=== PATIENT | male | born 1950 | race Caucasian/White ===

== ENCOUNTER 2021-01-23 12:10 | Outpatient (REF) | payer MEDICARE, OTHER, SELFPAY ==
[2021-01-23 13:32] LABS: MANUAL DIFF FLAG NO
[2021-01-23 13:40] LABS: Basophils Percent Auto 0.7 % (0-2); Eosinophils Absolute Auto 0.1 X10*3/uL (0.0-0.4); Eosinophils Percent Auto 1.4 % (0-4); Hematocrit 49.4 % (42-52); Hemoglobin 16.9 g/dl (14.0-18.0); Imm Gran Abs Auto 0.03 X10*3/uL (0.00-0.03); Imm Gran Pct Auto 0.7 % (0.0-0.4); Lymphocytes Absolute Auto 0.9 X10*3/uL (1.2-4.9); Lymphocytes Percent Auto 22.1 % (20-40); Mean Corpuscular HGB Conc 34.2 g/dl (31.0-36.0); Mean Corpuscular Hemoglobin 35.4 pg (27.0-33.0); Mean Corpuscular Volume 103.6 fL (80-98); Mean Platelet Volume 9.2 fL (9.4-12.4); Monocytes Absolute Auto 0.4 X10*3/uL (0.1-1.2); Monocytes Percent Auto 8.7 % (2-11); Neutrophils Absolute Auto 2.8 X10*3/uL (2.0-8.3); Neutrophils Percent Auto 66.4 % (45-73); Platelet Count 204 X10*3/uL (160-400); Red Blood Count 4.77 X10*6/uL (4.60-5.80); Red Cell Distribution Width 13.2 % (11.0-16.0); White Blood Count 4.3 X10*3/uL (4.8-10.8)
[2021-01-23 14:01] LABS: Alanine Aminotransferase 28 U/L (0-40); Albumin Level 3.9 g/dL (3.5-5.0); Alkaline Phosphatase 66 U/L (39-117); Anion Gap 14 (12-20); Aspartate Amino Transferase 25 U/L (5-37); Bilirubin Total 2.3 mg/dL (0.0-1.0); Blood Urea Nitrogen 10 mg/dL (9-16); Calcium 9.6 mg/dL (8.4-10.2); Carbon Dioxide 25 mmol/L (22-29); Chloride 107 mmol/L (96-108); Cholesterol 192 mg/dL; Estimated Glomerular Filt Rate > 60; Glucose Fasting 139 mg/dL (60-99); HDL Cholesterol 73 mg/dL; LDL Cholesterol Calculated 94 mg/dl; Potassium 4.7 mmol/L (3.3-5.1); Sodium 141 mmol/L (135-145); Total Protein 6.7 g/dL (6.5-8.0); Triglycerides 126 mg/dL
[2021-01-23 14:25] LABS: Prostate Specific Antigen Scr 1.21 ng/mL (<0.05-4.0); Thyroid Stimulating Hormone 1.49 uIU/mL (0.32-4.0)
== END 2021-01-23 12:11 | disposition home or self-care (01) ==
LOC: HO.10HDL 12:10
PROVIDERS: Absent Provider Nurse Practitioner Family; PCP Internal Medicine; Visit Provider Internal Medicine
DX: Z12.5 Encounter for screening for malignant neoplasm of prostate (principal); E78.00 Pure hypercholesterolemia, unspecified; I10 Essential (primary) hypertension; R63.5 Abnormal weight gain
CPT/HCPCS: 36415; 80053; 80061; 84153; 84443; 85025

== ENCOUNTER 2024-05-26 07:20 | Day surgery (SDC) | payer MEDICARE, OTHER, SELFPAY ==
[2024-05-24 13:40] VITALS: BMI 28.8
--- NOTE | 2024-05-25 09:15 | HO.ANESPROP2 ---
Documented by User: Francine Sandoval NP 05/25/24 09:16 HPI - Anesthesia Eval Consult details Narrative: 73yo M for Colonoscopy [facility] Past Medical History Medical History (Updated 05/24/24 @ 13:43 by Mendy Scott RN) No pertinent past medical history Surgical History Surgical History (Updated 05/24/24 @ 13:41 by Mendy Scott RN) Hx of cataract extraction H/O colonoscopy Social History Social History (Updated 05/24/24 @ 13:41 by Mendy Scott RN) Patient Tobacco Use Status: Never used Tobacco Use of substances other than those prescribed or required for medical reasons: No Are you DNR?: No Advance Directives: No Advance Directives Information Provided: Yes Meds Allergies Allergy/AdvReac Type Severity Reaction Status Date / Time No Known Allergies Allergy Verified 05/24/24 13:41 Home Medications ?Medication ?Instructions ?Recorded ?Confirmed ?Last Taken ?Type cyanocobalamin (vitamin B-12) 1,000 mcg PO DAILY 05/24/24 05/26/24 Unknown History 1,000 mcg tablet (Vitamin B-12) multivitamin 1 tab PO DAILY 05/24/24 05/26/24 Unknown History Exam Height,Weight and Vital Signs: Height 6 ft 2 in Weight 101.605 kg Assessment and Plan Assessment Anesthesia Assessment: Chart Reviewed Documented by User: Ronald Fregoso MD 05/26/24 09:32 [facility] Past Medical History Medical History (Updated 05/24/24 @ 13:43 by Mendy Scott RN) No pertinent past medical history Family History Family history of problems with anesthesia: No Surgical History Surgical History (Updated 05/24/24 @ 13:41 by Mendy Scott RN) Hx of cataract extraction H/O colonoscopy History of Problems with Anesthesia: No Social History Social History (Updated 05/24/24 @ 13:41 by Mendy cSott RN) Patient Tobacco Use Status: Never used Tobacco Use of substances other than those prescribed or required for medical reasons: No Are you DNR?: No Advance Directives: No Advance Directives Information Provided: Yes Meds Allergies Allergy/AdvReac Type Severity Reaction Status Date / Time No Known Allergies Allergy Verified 05/24/24 13:41 Home Medications ?Medication ?Instructions ?Recorded ?Confirmed ?Last Taken ?Type cyanocobalamin (vitamin B-12) 1,000 mcg PO DAILY 05/24/24 05/26/24 Unknown History 1,000 mcg tablet (Vitamin B-12) multivitamin 1 tab PO DAILY 05/24/24 05/26/24 Unknown History Exam Airway Mallampati Class: III TM Dist: >3cm Neck ROM: Full Assessment and Plan Assessment Anesthesia Assessment: Anesthesia Plan Discussed Final Anesthetic Review Family History of Problems with Anesthesia: No History of Problems with Anesthesia: No NPO: Yes ASA Class: II Final Preanesthetic Review: No Changes in Pt Med Stat, Meds/Allgs Chart Reviewed, Consent Obtained/Reviewed and Anes Risks/Benef Reviewed Patient Risk: Intermediate Procedure Risk: Low Anesthetic Plan Anesthetic Plan: TIVA Disposition: Standard PACU
[2024-05-26 07:56] VITALS: BMI 28.9
[2024-05-26 08:06] VITALS: BP 152/97; PULSE 99; RESP 16; TEMP 36.6; O2SAT 97
[2024-05-26] MEDS: Lactated Ringers 1,000 ML 100 ML IVCONT (08:18)
--- NOTE | 2024-05-26 10:08 | PM.OP ---
Brief Operative Note Date of Service: 05/26/24 Pre-op diagnosis: Screening Post-op diagnosis: other (Colon polyps) Procedure: Colonoscopy to the cecum with cold snare polypectomy of cecal polyp, and hot snare polypectomy x 2 Surgeon: Chai Owen MD Anesthesia: MAC Was an Jewelry Inspector used for this Procedure?: No Estimated blood loss (mL): 2.0 Pathology: other (A. Cecal polyp B. Ascending colon polyp C. Polyp at 50cm) Condition: stable Disposition: PACU
[2024-05-26 10:09] VITALS: BP 145/85; PULSE 80; RESP 17; TEMP 36.3; O2SAT 96
[2024-05-26 10:24] VITALS: BP 155/99; PULSE 95; RESP 16; TEMP 36.3; O2SAT 96
--- NOTE | 2024-05-26 11:02 | OP_ITS ---
DATE OF SERVICE: 05/26/2024 SURGEON: Chai Owen MD INDICATIONS: The patient presents for evaluation of personal history of colon polyps and colorectal cancer screening. Full consent was obtained from him for this, including risks of bleeding and perforation. PREOPERATIVE DIAGNOSIS: POSTOPERATIVE DIAGNOSIS: PROCEDURE PERFORMED: ESTIMATED BLOOD LOSS: COMPLICATIONS: ANESTHESIA: Monitored anesthesia care. ASSISTANTS: SPECIMENS: PREOPERATIVE DIAGNOSES: Colorectal cancer screening and personal history of colon polyps. POSTOPERATIVE DIAGNOSES: Colorectal cancer screening, personal history of colon polyps, colon polyps, diverticulosis, and internal hemorrhoids. PROCEDURES PERFORMED: Colonoscopy to the cecum with cold snare polypectomy x 1 of cecal polyp, and hot snare polypectomy x 2 in the ascending colon and at 50 cm. DESCRIPTION OF PROCEDURE: The patient was placed in the left lateral decubitus position. The digital rectal exam revealed no abnormalities. The Olympus video pediatric colonoscope was entered into the rectum and advanced to the cecum. Advancement to the cecum was difficult and required abdominal wall pressure. Once in the cecum, I did identify cecal pouch with appendiceal orifice and a normal-appearing ileocecal valve. There was transillumination of light deep in the right lower quadrant. The entire cecum was well visualized. The cecal mucosa had some friability, but with irrigation, there did not appear to be any underlying colitis. In the cecum was an approximately 5 or 6 mm polyp, which was removed by cold snare polypectomy and recovered by suction. The polypectomy site appeared clean, without any sign of residual polyp nor significant bleeding. The scope was then slowly withdrawn assessing all mucosal surfaces carefully. Preparation was excellent. The ascending colon mucosa also had some areas of friability, which again when irrigated did not reveal any underlying colitis. In the ascending colon was an approximately 1 cm polyp on a short stalk, which was removed by hot snare polypectomy and then recovered with the retrieval net bringing it out of the patient. The colonoscope was advanced back to the polypectomy site in the ascending colon, which appeared clean, without any sign of residual polyp nor bleeding. At 50 cm, was an approximately 1.5 cm polyp on a short stalk, which was removed by hot snare polypectomy and recovered with the retrieval net bringing it out of the patient. The scope was advanced back to the polypectomy site, which appeared clean, without any sign of residual polyp nor bleeding. Of note, there were several other less than 5 mm polyps in the colon, which were not biopsied nor removed today due to the length of the procedure. I did not visualize any other polyps, colitis, nor angiodysplasia. There was a mild amount of sigmoid diverticulosis. In the rectum, scope was retroflexed visualizing some internal hemorrhoids, but no other pathology. The rectal mucosa appeared normal. The scope was straightened and withdrawn from the patient. He tolerated the procedure well and was returned to recovery area in stable condition. IMPRESSION: 1. Colon polyps. 2. Diverticulosis. 3. Internal hemorrhoids. PLAN: The results of the pathology will be checked. I would recommend a repeat colonoscopy in 1 to 2 years. He was advised not to use any aspirin and NSAIDs for least 1 week. This has been discussed with his significant other. MD JOSE Adam/JORGE / [id number] MTDD
== END 2024-05-26 10:43 | disposition home or self-care (01) ==
PROVIDERS: PCP Internal Medicine; Visit Provider Internal Medicine
PROC: 0DJD8ZZ Inspection of Lower Intestinal Tract, Via Natural or Artificial Opening Endoscopic (ICD-10-PCS; CPT 45378; principal; 2024-05-26 08:40)
DX: Z12.11 Encounter for screening for malignant neoplasm of colon (principal); Z86.0101 Personal history of adenomatous and serrated colon polyps; D12.0 Benign neoplasm of cecum; D12.2 Benign neoplasm of ascending colon; D12.5 Benign neoplasm of sigmoid colon; K57.30 Diverticulosis of large intestine without perforation or abscess without bleeding; K64.8 Other hemorrhoids; Z79.899 Other long term (current) drug therapy
CPT/HCPCS: 45385; 88305; J2003; J2704

== ENCOUNTER 2024-12-25 13:28 | Outpatient (AMB) | payer MEDICARE, OTHER, SELFPAY ==
[2024-12-25 13:30] VITALS: BP 140/84; PULSE 136; TEMP 36.4; O2SAT 96; BMI 28.5
--- NOTE | 2024-12-25 13:30 | A.OFFPC_ITS ---
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 Accompanied by: Self / Same As Patient Allergies No Known Allergies Allergy (Verified 12/25/24 13:31) Tobacco use date assessed: 12/25/24 Fall risk assessment: 1 Fall in past year Last assessed Fall Risk: 12/25/24 Dental Screening Dental Screen Date: 12/25/24 Did you have a dental visit in the last 12 months?: Yes Did you have a dental problem in the last 6 months where you did not have access to dental care?: No [facility] Medical History (Updated 12/25/24 @ 13:59 by Paul Cruz MD) Hypercholesteremia No pertinent past medical history Surgical History Hx of cataract extraction H/O colonoscopy (~05/26/24) Family History (Updated 12/25/24 @ 13:41 by Shannan Shea MA) Mother No problems noted. Father No problems noted. Social History Housing: House Patient Tobacco Use Status: Never used Tobacco e-Cigarette/Vaping Use: Never Used service: Yes Current occupational status: retired Cognitive needs: No Hearing needs: No Vision needs: No Questionnaire PHQ-9 Over the last 2 weeks, how often have you been bothered by any of the following problems? 1. Little interest or pleasure in doing things: not at all 2. Feeling down, depressed, or hopeless: not at all 3. Trouble falling or staying asleep, or sleeping too much: not at all 4. Feeling tired or having little energy: not at all 5. Poor appetite or overeating: not at all 6. Feeling bad about yourself - or that you are a failure or have let yourself or your family down: not at all 7. Trouble concentrating on things, such as reading the newspaper or watching television: not at all 8. Moving or speaking so slowly that other people could have noticed. Or the opposite - being so fidgety or restless that you have been moving around a lot more than usual: not at all 9. Thoughts that you would be better off or of hurting yourself in some way: not at all Total score: 0 Source: Developed by Drs. Chai Burnham, Zeinab Aponte, Bashir Montejo and colleagues, with an educational shade from [employer]. Thrive Questionnaire Date Thrive assessed: 12/25/24 I am a: Patient Within the past 12 months, did the food you bought not last and you didn't have the money to get more?: Never true Within the past 12 months, did you worry whether your food would run out before you got money to buy more?: Never true Do you have trouble paying for medicines?: No Do you have trouble getting transportation to medical appointments?: No Do you have trouble paying your heating and electricity bill?: No Do you have trouble taking care of your child, family member or friend?: No Do you have trouble with day-to-day activities such as bathing, preparing meals, shopping, managing finances, etc.?: No Are you currently unemployed and looking for a job?: No Are you interested in more education?: No THRIVE Score: 0 AUDIT C Alcohol Use Questionnaire (AUDIT-C) 1. How often do you have a drink containing alcohol?: Monthly or less 2. How many drinks containing alcohol do you have on a typical day when you are drinking?: 1 or 2 3. How often do you have six or more drinks on one occasion?: Less than monthly Total Score: 2 ALEJANDRINA-7 AMB Questionnaire ALEJANDRINA-7 Date ALEJANDRINA - 7 assessed: 12/25/24 Feeling nervous, anxious, or on edge: 0 = Not at all Not being able to stop or control worryin = Not at all Worrying too much about different things: 0 = Not at all Trouble relaxin = Not at all Being so restless that it is hard to sit still: 0 = Not at all Becoming easily annoyed or irritable: 0 = Not at all Feeling afraid as if something awful might happen: 0 = Not at all Total ALEJANDRINA-7 score (0-4 normal; 5-9 mild; 10-14 moderate; 15-21 severe): 0 Source: Developed by Drs. Chai Burnham, Zeinab Aponte, Bashir Montejo and colleagues, with an educational shade from [employer]. Physical exam (Primary Care) Vital Signs: Last Vital Signs Temp 97.5 F 12/25/24 13:30 Pulse 136 H 12/25/24 13:30 BP 140/84 H 12/25/24 13:30 Pulse Ox 96 12/25/24 13:30 Oxygen Delivery Method Room Air 12/25/24 13:30 BMI result Body Mass Index 28.5 Tobacco/Smoking Status: Tobacco use Status Tobacco use date assessed 12/25/24 12/25/24 13:32 Patient Tobacco Use Status Never used Tobacco 12/25/24 13:32 e-Cigarette/Vaping Use Never Used 12/25/24 13:41 PHQ-9: PHQ-9 Score PHQ-9: Total score 0 12/25/24 13:41 Thrive Assessment: Date of Thrive Assessment Date Thrive assessed 12/25/24 12/25/24 13:32 Coding Level of Care Code New Pt Level 4 (62097) Complex EM visit Add On G2211 Diagnoses Hypercholesteremia E78.00 Assessment & Plan Assessment & Plan (1) Hypercholesteremia: Code(s): E78.00 - Pure hypercholesterolemia, unspecified Category: Medical Plan: History of Present Illness - The patient is a 74-year-old male presenting with diarrhea: - Reports diarrhea onset following an episode of illness beginning July 14, with symptoms persisting until around mid-September, characterized by urgency, bloating, and cramping. - Denies blood in stools; colonoscopy reports from the prior year confirm removal of benign polyps. - Experiences tremors and occasional dizziness, leading to rare falls but generally maintains activities of daily living. - Reports past instance of severe coughing with colored sputum in November; symptoms have since diminished significantly. Social History - [place] [employer] with prior medical experience. - Continues to drive and perform activities of daily living independently. - Receives most of his medical care and prescriptions through the [facility]. - Has not visited the clinic frequently, primarily seeks care through the [facility] in [place]. Review of Systems - Gastrointestinal: Reports diarrhea and bloating; denies blood in stool. - Neurological: Reports dizziness, hand tremors, wobbliness. - Respiratory: Reports past cough with colored sputum; active wheezing not currently mentioned. Physical Exam General: Cooperative and healthy appearing Nutritional Appearance: Well nourished Orientation/consciousness: Patient oriented x3 Limitations: No limitations Head: Normal to inspection General: Appearance normal, both eyes and all related structures Neck: Normal visual inspection Chest: Normal palpation of entire chest wall Respiratory: Patient reports a history of coughing up green and yellow mucus, especially in the mornings, but the volume has decreased over time. ormal respiratory effort Neurology: Patient oriented x3. Reports feeling wobbly, lightheaded, and dizzy at times, with occasional hand shaking. No issues with driving or daily activities, but handwriting worsens when feeling shaky. Basic testing for Parkinson's was negative. Symptoms are likely age-related. Gait: Normal Results Plan 1. Diarrhea - Initiate evaluation with blood tests focused on inflammatory markers. 2. Tremor - Observation from physical testing suggests no signs of Parkinson's disease. 3. Respiratory Concerns - Pursue a chest X-ray to assess residual impacts from past respiratory symptoms. Discussion Notes During the consultation, we discussed the patient's gastrointestinal concerns and the potential need for evaluating inflammatory markers for indications of Crohn's disease. I also performed neurological assessments that ruled out Parkinson's disease. We decided to follow up with blood work and a chest X-ray to investigate both current and historical symptoms further. We discussed ac cessing the nearby clinic for these tests. The patient expressed understanding and agreement with the proposed plan of care. We also discussed the general maintenance and continuation of care through the [facility] for other medical needs, with considerations for seeking care as needed. Patient Instructions - Visit a medical clinic for blood work and a chest X-ray as advised. - Fast before blood work to ensure accurate results. - Report any new symptoms or changes in current symptoms promptly. - Continue regular follow-up visits with the [facility] for ongoing health management. - Seek care immediately if experiencing worsening dizziness or new balance issues. Orders: Orders XR chest 2V Today E78.00 - Pure hypercholesterolemia, unspecified, R05.9 - Cough, unspecified Basic Metabolic Panel Today E78.00 - Pure hypercholesterolemia, unspecified Lipid Panel Today E78.00 - Pure hypercholesterolemia, unspecified Liver Panel Today E78.00 - Pure hypercholesterolemia, unspecified UA and rflx microscopic Today E78.00 - Pure hypercholesterolemia, unspecified BinaxNOW Covid-19 Ag Today E78.00 - Pure hypercholesterolemia, unspecified, J06.9 - Acute upper respiratory infection, unspecified Thyroid Stimulating Hormone Today E78.00 - Pure hypercholesterolemia, unspecified Erythrocyte Sedimentation Rate Today E78.00 - Pure hypercholesterolemia, unspecified
--- OUTSIDE RECORDS SUMMARY | 2024-12-25 15:11 | XMS_ITS | Encounter Summary ---
Author Name [facility] [place] [facility] [place] [facility] [place] [facility] [place] Address [address] [place] [address] Care Team Providers Care Warp Knitter Name Role Phone VIVIAN BARBA Primary Care Provider Unavail able Insurance Providers: All historical and current Section Date Range: From patient's date of to the date document was created. This section includes the names of all active insurance providers for the patient. Insurance Provider Type of Coverage Plan Name Start of Policy Coverage End of Policy Coverage Group Number Member ID Insurance Provider's Telephone Number Policy Diamond's Name Patient's Relationship to Policy Diamond MEDICARE (WNR) MEDICARE (M) PART A November 16, 2017 PART A [id number] ANTONIA COHN PATIENT MEDICARE (WNR) MEDICARE (M) PART B November 16, 2017 PART B [id number] [phone] ANTONIA COHN PATIENT MEDICARE (WNR) MEDICARE (M) PART A November 16, 2017 PART A [id number] ANTONIA COHN PATIENT MEDICARE (WNR) MEDICARE (M) PART B November 16, 2017 PART B [id number] ANTONIA COHN PATIENT FOR LIFE TFL* May 04, 2018 [id number] [phone] ANTONIA COHN PATIENT FOR LIFE [facility] [place] TFL November 16, 2017 FOR LIFE [id number] ANTONIA COHN PATIENT Selected Encounter This section includes the information on record at [place] for the Encounter. Date/Time Encounter Type Encounter Description Reason Provider Source Jul 31, 2024 03:30 PM OFFICE O/P EST HI 40 MIN PRIMARY CARE/MEDICINE ICD-10-CM F10.10 Alcohol abuse, uncomplicated LEV GAMEZ IHChristina Encounter Template Text not used by [place] Assessments - Encounter Diagnoses This section includes the primary and secondary diagnoses documented for the Encounter. Date/Time Primary/Secondary Diagnosis Diagnosis Name Provider Source Sep 04, 2024 12:51 PM PRIMARY Alcohol abuse, uncomplicated KYRA GAMEZ Sep 04, 2024 12:51 PM SECONDARY Abnormal levels of other serum enzymes KYRA GAMEZ Sep 04, 2024 12:51 PM SECONDARY Acute suppr otitis media w/o spon rupt ear drum, right ear KYRA GAMEZ Sep 04, 2024 12:51 PM SECONDARY Elevated blood-pressure reading, w/o diagnosis of htn KYRA GAMEZ Sep 04, 2024 12:51 PM SECONDARY Other idiopathic peripheral autonomic neuropathy KYRA GAMEZ Sep 04, 2024 12:51 PM SECONDARY Other insomnia KYRA GAMEZ Sep 04, 2024 12:51 PM SECONDARY Polycythemia vera KYRA GAMEZ Sep 04, 2024 12:51 PM SECONDARY Vitamin D deficiency, unspecified KYRA GAMEZ Plan of Treatment: Future Appointments (+ 6 months) and Future Tests (+/- 45 days) The Plan of Treatment section includes future care activities for the patient from all [place] treatmentfacilities. This section includes future appointments and future orders which are active, pending or scheduled. Future Appointments This section includes appointments that were scheduled to occur 6 months from the date of the Encounter, up to a maximum of 20 appointments. The data comes from all [place] treatment facilities. Appointment Date/Time Appointment Type Appointme nt Facility Name Sep 28, 2024 11:30 AM AMBULATORY - MEDICINE [facility] Oct 16, 2024 02:45 PM [facility] Oct 19, 2024 03:30 PM [facility] MEDICINE [facility] Nov 03, 2024 01:00 PM AMBULATORY - NONE [place] [facility] November 24, 2024 11:00 AM AMBULATORY - MEDICINE [facility] November 28, 2024 12:30 PM AMBULATORY - MEDICINE [facility] Dec 26, 2024 03:30 PM AMBULATORY - MEDICINE [facility] Lab Results: +/- 30 days of the encounter This section includes the Chemistry and Hematology Lab Results on record with [place] for the patient. Radiology Reports and Pathology Reports are provided separately, in subsequent sections. Lab Results This section contains the Chemistry/Hematology Results that were resulted 30 days before or 30 daysafter the date of the Encounter. Date/Time Source Result Type Result - Unit Interpretation Reference Range Specimen Type Comment Jul 28, 2024 09:45 AM [facility] HEPATITIS B SURFACE ANTIBODY (HBsAb)-WH SERUM Specimen Type: SERUM No comment entered. Ordering Provider: KYRA GAMEZ Report Released Date/Time: Jun 24, 2024 08:06 PM Reporting Lab: [address] [address] Performing Lab: [address] [address] HBsAb Non Reactive Non Reactive Jul 28, 2024 09:45 AM [facility] HEPATITIS C ANTIBODY (HCV)-ARC SERUM Specimen Type: SERUM Comment: Hep C Ab: No HCV antibody detected. If recent infection is suspected or other evidence suggests HCV infection, consider HCV nucleic acid testing Ordering Provider: KYRA GAMEZ Report Released Date/Time: Jun 24, 2024 08:06 PM Reporting Lab: [address] [address] Performing Lab: [address] [address] HEPATITIS C ANTIBODY NON-REACTIVE NON-RE ACTIVE Jul 28, 2024 09:45 AM [facility] HIV 1&2 Ag/Ab SCREEN SERUM Specimen T ype: SERUM No comment entered. Ordering Provider: KYRA GAMEZ Report Released Date/Time: Jun 24, 2024 08:06 PM Reporting Lab: [facility] [address] [facility] [address] Performing Lab: [address] [address] HIV 1&2 Ag/Ab SCREEN NON-REACTIVE Nonrea ctive Jul 28, 2024 09:45 AM [facility] BASIC METABOLIC PANEL (fasting) SERUM Specimen Type: SERUM No comment entered. Ordering Provider: KYRA GAMEZ Report Released Date/Time: Jun 24, 2024 08:06 PM Reporting Lab: [address] [address] Performing Lab: [address] [address] UREA NITROGEN 11 mg/dL 7-25 GLUCOSE 105 mg/dL H 65-100 SODIUM 139 mmol/L 135-145 POTASSIUM 3.9 mmol/L 3.5-5.0 CHLORIDE 104 mmol/L 100-110 CO2 27 meq/L 20-30 CREATININE, Serum 0.81 mg/dL 0.50-1.40 eGFR(CKD-EPI 2020) >90 mL/min >60 Jul 28, 2024 09:45 AM [facility] LIVER FUNCTION SERUM Specimen Type: SERUM No comment entered. Ordering Provider: KYRA GAMEZ Report Released Date/Time: Jun 24, 2024 08:06 PM Reporting Lab: [address] [address] Performing Lab: [address] [address] PROTEIN,TOTAL 7.4 g/dL 6.0-8.3 ALBUMIN 3.6 g/dL 3.5-5.0 ALKALINE PHOSPHATASE 66 U/L 40-150 AST 37 U/L H 5-34 ALT 45 U/L BILIRUBIN, TOTAL 3.8 mg/dL H 0.2-1.2 BILIRUBIN, DIRECT 0.7 mg/dL H 0-0.5 Jul 28, 2024 09:45 AM [facility] LIPID PANEL FASTING SERUM Specimen Ty pe: SERUM No comment entered. Ordering Provider: KYRA GAMEZ Report Released Date/Time: Jun 24, 2024 08:06 PM Reporting Lab: [place] [address] [address] [facility]: [facility] [address] [address] CHOLESTEROL 182 mg/dL TRIGLYCERIDE 111 mg/dL 0-150 LDL calculated 82 mg/dL 0-129 CHOL/HDL 2.3 HDL CHOLESTEROL 78 mg/dL H 40-60 Jul 28, 2024 09:45 AM [facility] VITAMIN D (25-OH) SERUM Specimen Type : SERUM No comment entered. Ordering Provider: KYRA GAMEZ Report Released Date/Time: Jun 24, 2024 08:06 PM Reporting Lab: [address] [address] Performing Lab: [address] [address] VITAMIN D (25-OH) <13 ng/mL L 20-50 Jul 28, 2024 09:45 AM [facility] VITAMIN B12 SERUM Specimen Type: SERUM No comment entered. Ordering Provider: KYRA GAMEZ Report Released Date/Time: Jun 24, 2024 08:06 PM Reporting Lab: [address] [address] Performing Lab: [address] [address] VITAMIN B12 221 pg/mL 200-900 Jul 28, 2024 09:45 AM [facility] CBC BLOOD Sp ecimen Type: BLOOD No comment entered. Ordering Provider: KYRA GAMEZ Report Released Date/Time: Jun 24, 2024 08:06 PM Reporting Lab: [address] [address] Performing Lab: [address] [address] WBC 6.21 10*3/uL 4.50-11.00 RBC 4.52 10*6/uL 4.23-5.66 HGB 16.0 g/dL 12.8-17 HCT 45.6 39.2-50.4 MCV 100.9 fL H 82-99 MCHC 35.1 g/dL 30.8-35.1 PLT 166 10*3/uL 140-360 RDW-CV 12.1 12.0-16.0 MCH 35.4 pg H 26.2-32.6 Jul 28, 2024 09:45 AM [facility] IRON & TIBC PANEL SERUM Specimen Type : SERUM No comment entered. Ordering Provider: KYRA GAMEZ Report Released Date/Time: Jun 24, 2024 08:06 PM Reporting Lab: [address] [address] Performing Lab: [address] [address] TIBC 228 ug/dL 204-475 IRON 216 ug/dL H 40-160 Transferrin Saturation 94.6 H 20.0-50.0 Transferrin (TRF) 173 mg/dL L 200-360 Jul 28, 2024 09:45 AM [facility] HEMOGLOBIN A1C PANEL BLOOD Specimen T ype: BLOOD Comment: Values obtained from A1C measurements can vary. For atypical A1C assays, a reported value of 7.0 could actually be between 6.72 and 7.28 if measured by a reference method. A reported value of 9.0 could actually be between 8.73 and 9.27. Ref: http://www.ngsp.org/CAPdata.asp Ordering Provider: KYRA GAMEZ Report Released Date/Time: Jun 24, 2024 08:06 PM Reporting Lab: [address] [address] Performing Lab: [address] [address] HEMOGLOBIN A1C 4.9 4.0-5.6 Jul 28, 2024 09:45 AM [facility] TSH SERUM Sp ecimen Type: SERUM No comment entered. Ordering Provider: KYRA GAMEZ Report Released Date/Time: Jun 24, 2024 08:06 PM Reporting Lab: [address] [address] Performing Lab: [address] [address] TSH 3.01 u[IU]/mL 0.35-5.00 Jul 28, 2024 09:45 AM [facility] FERRITIN SERUM Sp ecimen Type: SERUM No comment entered. Ordering Provider: KYRA GAMEZ Report Released Date/Time: Jun 24, 2024 08:06 PM Reporting Lab: [facility] [address] [facility] [address] Performing Lab: [facility] [address] [facility] [address] FERRITIN 658 ng/mL H 20-300 Vital Signs: All taken on the encounter date This section contains inpatient and outpatient Vital Signs collected on the date of the Encounter. Date/Time Temperature Pulse Blood Pressure Respiratory Rate SP02 Pain Height Weight Body Mass Index Source Jul 31, 2024 03:33 PM 100 136/91 96 224 [address] [facility] Social History: Smoking Status (Most current) and Tobacco Use (All prior to encounter date) This section includes the most current, and the historical, smoking and tobacco- related health factors from the [place] facility where the Encounter took place. Current Smoking Status This section includes the most current smoking, or tobacco-related health factor, from the [place] facility where the Encounter took place. Date/Time Current Smoking Status Comment Facil ity May 26, 2023 11:00 AM [place]-TOBACCO NEVER USED [facility] Advance Directives: All historical and current Section Date Range: From patient's date of to the date document was created. This section includes ALL of a patient's completed or amended [place] Advance and Rescinded Directives. The entries below indicate that a directive exists for the patient, but an actual copy is not included with this document. The data comes from all [place] facilities. Date Advance Directives Provider Source Oct 16, 2024 ADVANCE DIRECTIVE IZABELLA JOSEPH Jun 04, 2024 ADVANCE DIRECTIVE MARIE PHELAN [place] [facility] Encounter Notes: All associated encounter notes This section contains the clinical notes associated to the Encounter. Date/Time Encounter Note(s) Provider Source Jul 31, 2024 03:34 PM PREVENTIVE MEDICIN E NURSING NOTE: LOCAL TITLE: CLINICAL REMINDERS/NURSING STANDARD TITLE: PREVENTIVE MEDICINE NURSING NOTE DATE OF NOTE: JUL 31, 2024@15:34 ENTRY DATE: JUL 31, 2024@15:34:12 AUTHOR: LUDMILA FALL EXP COSIGNER: URGENCY: STATUS: COMPLETED CLINICAL REMINDERS/NURSING Has ADDENDA Homelessness/Food Insecurity Screen: In the past 2 months, have you been living in stable housing that you own, rent, or stay in as part of a household? Yes - Living in stable housing. Are you worried or concerned that in the next 2 months you may NOT have stable housing that you own, rent, or stay in as part of a household? No - Not worried about housing near future The reports the following: Within the past 12 months, you worried whether your food would run out before you got money to buy more. Never true Within the past 12 months, the food you bought just didn't last and you didn't have money to get more. Never true Depression Screening: Perform PHQ-2 A PHQ-2 screen was performed. The score was 2 which is a negative screen for depression. Over the past two weeks, how often have you been bothered by the following problems? 1. Little interest or pleasure in doing things Several days 2. Feeling down, depressed, or hopeless Several days Pneumococcal Conjugate Vaccine (PCV15/PCV20): Refuses PCV vaccine Immunization: PNEUMOCOCCAL CONJUGATE, UNSPECIFIED FORMULATION Refusal Reason: PATIENT DECISION Patient refuses all immunization(s) in the PneumoPCV group Date Documented: 07/31/24 15:34 Influenza Immunization: The patient has received the seasonal influenza vaccine for the current season at another location. Documented: INFLUENZA, UNSPECIFIED FORMULATION Historical Date Administered: Apr 2024 Exact date unknown Outside Location: Outside Healthcare Provider Information Source: FROM PATIENT'S RECALL Alcohol Use Screen (AUDIT-C): Alcohol Screen: SCREEN FOR ALCOHOL (AUDIT-C) An alcohol screening test (AUDIT-C) was positive (score=9). 1. How often did you have a drink containing alcohol in the past year? Consider a drink to be a 12 ounce can or bottle of regular beer, 8 ounces of malt liquor, a 5 ounce glass of table wine, or a 1.5 ounce shot of liquor (like scotch, gin, or vodka). Four or more times a week 2. How many drinks containing alcohol did you have on a typical day when you were drinking in the past year? Three or four drinks 3. How often did you have six or more drinks on one occasion in the past year? Daily or almost daily COVID-19 Immunization: PER PHARMACY : NO COVID VACCINE AVAILABLE AT THIS TIIME Sexual Orientation: The patient thinks of their sexual orientation as: Straight or Heterosexual Eye Care At-Risk Screen : Patient identified to be at risk for the following eye condition(s): GLAUCOMA: Glaucoma Risk Factors Information: Problem Diagnosis: 01/03/2024 H40.1190 (ICD-10-CM) Primary open-angle glaucoma, unspecified eye, stage unspecified Date Entered: 05/26/2023; Date Last Modified: 01/03/2024 Status: ACTIVE; Priority: UNDEFINED Prov. Narr. - POAG - primary open-angle glaucoma Action: Patient has a future eye care appointment scheduled within the next 90 days. Date of Appointment: [facility] /quan FALL LPN Licensed Practical Nurse Signed: 07/31/2024 15:37 08/02/2024 ADDENDUM STATUS: COMPLETED Follow Up Colonoscopy: Colonoscopy is due based on information available to this reminder. Prior/outside Colonoscopy results: Date: May 26, 2024 Colonoscopy reminder set 1.5 years from AUG 02, 2024. /quan FALL LPN Licensed Practical Nurse Signed: 08/02/2024 15:33 LUDMILA FALL LM Jul 31, 2024 03:32 PM PRIMARY CARE NURSE PRACTITIONER OUTPATIENT NOTE: LOCAL TITLE: NURSE PRACTITIONER OUTPATIENT NOTE STANDARD TITLE: PRIMARY CARE NURSE PRACTITIONER OUTPATIENT NOTE DATE OF NOTE: JUL 31, 2024@15:32 ENTRY DATE: JUL 31, 2024@15:32:39 AUTHOR: KYRA GAMEZ EXP COSIGNER: URGENCY: STATUS: COMPLETED PRIMARY CARE VISIT ANTONIA COHN, is a 73 y/o WHITE MALE who [facility] today at the [place] [facility]. TYPE OF VISIT: Face to face HPI: polycythemia vera - no longer taking B12. Iron stores are elevated, HGB wnl. vitamin D deficiency - not taking supplement. reports neuropathy b/l feet - feels like an ice pick to my toenails. Sx worse at night. No DM. + ETOH - drinks 4-5 beers or 3-4 glasses wine a day. - states this is not a problem for him, doesn't affect relationships or work - liver enzymes are elevated insomnia, states he has tried max dose melatonin but it didn't help. right ear pain, tinnitus is worse over past several days. BP and HR elevated in clinic today - not on Rx for hypertension. Denies CP, palpitations, peripheral edema. Recent labs reviewed and all medications were reconciled during this visit. HISTORY: PERIOD OF SERVICE - [employer] FROM Aug TO Aug COMBAT SERVICE INDICATED: No VITAL SIGNS: Blood Pressure: 136/91 (07/31/2024 15:33) Pain: 8 (09/23/2023 12:33) Patient Height: 72 in [182.9 cm] (01/03/2024 15:08) Patient Weight: 224 lb [101.60 kg] (07/31/2024 15:33) Pulse: 100 (07/31/2024 15:33) Respiration: 20 (01/03/2024 15:08) Temperature: 98 F [36.7 C] (01/03/2024 15:08) REVIEW OF SYSTEMS: see HPI PHYSICAL EXAMINATION: General: Well-appearing in no obvious distress. Obese. Mental Status: Alert and oriented x4. Head: Normocephalic, atraumatic. Eyes: PERRL. EOMI. Anicteric sclerae. ENT: Left ear, TM wnl. Right TM bulging, opaque, canal with mild erythema. Moist oral mucosa. Posterior pharynx unremarkable. Neck: Supple. No lymphadenopathy. No bruit. Thyroid unremarkable. Lungs: CTAB. Normal chest excursion. Eupneic respirations. CV: Heart tones S1, S2. RRR. No M/G/R. No peripheral edema. GI: Abdomen is soft and nontender. No palpable mass or organomegaly. Neuro: CN II through XII grossly intact. Normal speech. Normal gait. Sensation intact BLE. Integument: Skin warm and dry. No rashes or lesions on visible areas. Psych: Normal mood and affect. Normal judgment. Cooperative with exam, follows commands. ALLERGIES: Patient has answered [facility] - see end of note PREVENTIVE MEDICINE GOALS Homelessness/Food Insecurity Screen May 26 Depression Screening May 26 Pneumococcal Conjugate Vaccine (PCV15/PCDUE NOW Influenza Immunization DUE NOW Medication Reconciliation DUE NOW Alcohol Use Screen (AUDIT-C) May 26 COVID-19 Immunization DUE NOW Sexual Orientation May 26 Eye Care At-Risk Screen Sep 15 Hepatitis A Vaccine for High Risk DUE NOW (Optional) Whole Health Documentation DUE NOW ASSESSMENT/PLAN: Active problems - Computerized Problem List is the source for the followin. Alcohol abuse - declines referral to , TOÑ[facility] program. Advised to reduce intake. 2. Elevated liver enzymes level - see above. Declines workup. 3. Polycythemia vera (clinical) - HGB wnl, iron stores elevated. Not followed by GI/hematology. Monitor labs closely. 4. vitamin D deficiency - supplement ordered. 5. peripheral neuropathy - unknown etiology. Declines workup. Start topical lidocaine PRN. 6. right suppurative otitis media - ATB ordered x 7 days. 7. insomnia - melatonin ineffective. Trial trazadone at HS. 8. elevated BP without Dx HTN - instructed to monitor BP at home, BP goal < 140/80. To notify PCP if BP persistently over goal to discuss initiation of Rx. FOLLOW UP: Return to clinic as noted below and/or sooner PRN UPCOMING APPOINTMENTS: 12/27/2024 08:30 CWM/NO/OPTOMETRY/MERHAR No barriers noted; patient understands and agrees to current treatment plan. If patient has any questions, concerns or changes in current health status he/she will call or [facility] HM: Medication Reconciliation: Outpatient: Has the patient been taking medications as documented in the EMLR? No: Discrepencies were identified. See below. Essential Medication List for Review used to complete this medication reconciliation. INCLUDED IN THIS LIST: Alphabetical list of active outpatient prescriptions dispensed from this [place] (local) and dispensed from another [place] or [facility] facility (remote) as well as inpatient orders (local, pending and active), local clinic medications, locally documented non-VA medications, and local prescriptions that have or been discontinued in the past 90 days. - Discrepancies were identified, addressed, and discussed with the patient/caregiver at this encounter. Discrepancies: not taking MVI or B12 supplement - All changes in medications, including all non-VA/Herbal/OTC medications were entered into CPRS. - If there were any medications the patient should no longer take, they were discontinued. - The patient/caregiver was instructed to update this list, discard old lists, and take this list to the next appointment, whether with a VA or non-VA provider. Alcohol Use Screen (AUDIT-C): Alcohol Screen: SCREEN FOR ALCOHOL (AUDIT-C) An alcohol screening test (AUDIT-C) was positive (score=7). 1. How often did you have a drink containing alcohol in the past year? Consider a drink to be a 12 ounce can or bottle of regular beer, 8 ounces of malt liquor, a 5 ounce glass of table wine, or a 1.5 ounce shot of liquor (like scotch, gin, or vodka). Four or more times a week 2. How many drinks containing alcohol did you have on a typical day when you were drinking in the past year? Five or six drinks 3. How often did you have six or more drinks on one occasion in the past year? Less than monthly /janina/ CEM HAYDEN CERTIFIED NURSE PRACTITIONER Signed: 09/04/2024 12:52 KYRA GAMEZ [facility]
== END 2024-12-25 13:54 | disposition home or self-care (01) ==
LOC: HO.HMCHD 13:29
PROVIDERS: PCP Internal Medicine; Visit Provider Internal Medicine
DX: E78.00 Pure hypercholesterolemia, unspecified (principal)

== ENCOUNTER → 2024-12-25 13:28 | Outpatient (BNVA) | payer MEDICARE, OTHER, SELFPAY | PROVIDERS: PCP Internal Medicine; Visit Provider Internal Medicine | DX: E78.00 Pure hypercholesterolemia, unspecified (principal) | CPT/HCPCS: 99202 ==

== ENCOUNTER 2024-12-28 15:04 | Outpatient (REF) | payer MEDICARE, OTHER, SELFPAY ==
--- NOTE | ~2024-12-28 | XR_ITS ---
EXAMINATION: XR CHEST CLINICAL INFORMATION: R05.9 - Cough, unspecified COMPARISON: None available. TECHNIQUE: 2 views of the chest were obtained. FINDINGS: Hyperinflated lungs. No consolidation, pleural effusion or pneumothorax. Cardiomediastinal silhouette size is normal. Multilevel thoracic and upper lumbar spondylosis. Osteopenia versus osteoporosis. XR/XR chest 2V IMPRESSION: Consider chronic interstitial lung disease without acute airspace disease. Probable ankylosing spondylitis, thoracic spine. Electronically signed by: Agustin Moy MD 12/28/2024 03:41 PM EDT
[2024-12-28 16:57] LABS: Alanine Aminotransferase 25 U/L (0-40); Albumin Level 3.9 g/dL (3.5-5.0); Alkaline Phosphatase 83 U/L (39-117); Anion Gap 12 (12-20); Aspartate Amino Transferase 38 U/L (5-37); Bilirubin Direct 0.8 mg/dL (0.0-0.5); Blood Urea Nitrogen 8 mg/dL (9-16); Calcium 9.7 mg/dL (8.4-10.2); Carbon Dioxide 29 mmol/L (22-29); Chloride 105 mmol/L (96-108); Cholesterol 192 mg/dL (<200); Estimated Glomerular Filt Rate > 60; Glucose Random 103 mg/dL (60-115); HDL Cholesterol 87 mg/dL (>40); LDL Cholesterol Calculated 90 mg/dL (<100); Potassium 4.7 mmol/L (3.3-5.1); Sodium 141 mmol/L (135-145); Total Protein 7.4 g/dL (6.5-8.0); Triglycerides 76 mg/dL (<150)
[2024-12-28 17:12] LABS: Erythrocyte Sedimentation Rate 16 MM/HR (0-15)
== END 2024-12-28 15:05 | disposition home or self-care (01) ==
LOC: HO.HMGCX 15:04
PROVIDERS: PCP Internal Medicine; Visit Provider Internal Medicine
DX: R05.9 Cough, unspecified (principal); E78.00 Pure hypercholesterolemia, unspecified
CPT/HCPCS: 36415; 71046; 80048; 80061; 80076; 84443; 85652

== ENCOUNTER → 2024-12-28 15:09 | Outpatient (BNV) | payer MEDICARE, OTHER, SELFPAY | PROVIDERS: PCP Internal Medicine; Visit Provider Radiology Diagnostic Radiology | DX: R05.9 Cough, unspecified (principal) | CPT/HCPCS: 71046 ==

== ENCOUNTER 2024-12-29 14:16 | Outpatient (REF) | payer MEDICARE, OTHER, SELFPAY ==
[2024-12-29 16:18] LABS: Hematocrit 45.4 % (42.0-52.0); Hemoglobin 15.9 g/dl (14.0-18.0); Mean Corpuscular Volume 102.7 fL (80.0-98.0); Mean Platelet Volume 8.7 fL (9.4-12.4); Platelet Count 186 X10*3/uL (160-400); Red Blood Count 4.42 X10*6/uL (4.60-5.80); Red Cell Distribution Width 12.3 % (11.0-16.0); White Blood Count 5.3 X10*3/uL (4.8-10.8)
[2024-12-29 16:19] LABS: Appearance Urine Clear; Color Urine Yellow; Glucose Urine UA Negative (Negative); Leukocyte Esterase Urine Negative (Negative); Nitrite Urine Negative (Negative); PH 6.5 (5.0-9.0); Urine Blood Negative (Negative); Urine Ketones Negative (Negative); Urine Protein Negative (Neg-Trace)
== END 2024-12-29 14:17 | disposition home or self-care (01) ==
LOC: HO.HMGCLDS 14:16
PROVIDERS: PCP Internal Medicine; Visit Provider Internal Medicine
DX: E78.00 Pure hypercholesterolemia, unspecified (principal)
CPT/HCPCS: 36415; 81003; 85027

== ENCOUNTER 2025-01-15 13:16 | Outpatient (AMB) | payer MEDICARE, OTHER, SELFPAY ==
--- OUTSIDE RECORDS SUMMARY | 2023-12-27 10:00 | XMS_ITS ---
Author Organization [facility] Address [address] [place] [address] Care Team Providers Care Utility Service Worker Name Role Phone Mannie Jamil MD Primary Care Provider Frederick Durham Unavailable [phone] Encounters Encounter Location Date Provider Diagnosis [facility] [address] [facility] [address] [place] [address] 12/27/2023 Frederick Dwyer Plan Of Treatment No Information Progress Notes * JAYLENEValentin LEMUS ADOB: [birth year] (74 yo M)Acc No.[id number]:12/27/2023 Progress Note Patient: Valentin PEDROZA Provider: Christina Dwyer DPM :1950 A ge:73 Y S ex:Male Date:12/27/2023 Address:[address] [place] [address] [address], [place] Pcp:Mannie Jamil MD Subjective: * Chief Complaints: * * Medical History: Objective: * Vitals: Assessment: Plan: * Treatment: * Images: * The named appointment provid er may or may not be the originator of this progress note, and it is not deemed complete until electronically signed by the appointment provider. Sign off status: Pending * Provider: Christina Dwyer DPM Date: 12/27/2023 Generated for Monalisai ng/Fasholag/eTransmitting on: 01/15/2025 01:44 PM EDT
[2025-01-15 13:01] VITALS: BP 138/84; PULSE 103; TEMP 36.5; O2SAT 99; BMI 28.5
--- NOTE | 2025-01-15 13:01 | MHC.PC.OV ---
Vital Signs 01/15/25 13:01 Height 6 ft 2 in Weight 222 lb BMI 28.5 BP 138/84 Blood Pressure Location Lt brachial Position Sitting Pulse 103 H Pulse Source Pulse Oximeter Temp 97.7 F Temp Source Axillary Pulse Oximetry (%) 99 Oxygen Delivery Method Room Air Intake Visit Reasons: follow up lab,and xray Client Resource Specialist Required: No Accompanied by: Self / Same As Patient Allergies No Known Allergies Allergy (Verified 01/15/25 13:01) Tobacco use date assessed: 01/15/25 Fall risk assessment: 1 Fall in past year Last assessed Fall Risk: 01/15/25 Dental Screening Dental Screen Date: 01/15/25 Did you have a dental visit in the last 12 months?: Yes Did you have a dental problem in the last 6 months where you did not have access to dental care?: No [facility] Medical History (Updated 01/15/25 @ 13:48 by Paul Cruz MD) Ankylosing spondylitis Alcohol abuse Gait disorder Hypercholesteremia No pertinent past medical history Surgical History Hx of cataract extraction H/O colonoscopy (~05/26/24) Family History Mother No problems noted. Father No problems noted. Social History Housing: Apartment Patient Tobacco Use Status: Never used Tobacco e-Cigarette/Vaping Use: Never Used service: Yes Current occupational status: retired Cognitive needs: No Hearing needs: No Vision needs: No Questionnaire PHQ-9 Over the last 2 weeks, how often have you been bothered by any of the following problems? 1. Little interest or pleasure in doing things: not at all 2. Feeling down, depressed, or hopeless: not at all 3. Trouble falling or staying asleep, or sleeping too much: not at all 4. Feeling tired or having little energy: not at all 5. Poor appetite or overeating: not at all 6. Feeling bad about yourself - or that you are a failure or have let yourself or your family down: not at all 7. Trouble concentrating on things, such as reading the newspaper or watching television: not at all 8. Moving or speaking so slowly that other people could have noticed. Or the opposite - being so fidgety or restless that you have been moving around a lot more than usual: not at all 9. Thoughts that you would be better off or of hurting yourself in some way: not at all Total score: 0 Source: Developed by Drs. Chai Burnham, Zeinab Aponte, Bashir Montejo and colleagues, with an educational shade from [employer]. Thrive Questionnaire Date Thrive assessed: 01/15/25 I am a: Patient Within the past 12 months, did the food you bought not last and you didn't have the money to get more?: Never true Within the past 12 months, did you worry whether your food would run out before you got money to buy more?: Never true Do you have trouble paying for medicines?: No Do you have trouble getting transportation to medical appointments?: No Do you have trouble paying your heating and electricity bill?: No Do you have trouble taking care of your child, family member or friend?: No Do you have trouble with day-to-day activities such as bathing, preparing meals, shopping, managing finances, etc.?: No Are you currently unemployed and looking for a job?: No Are you interested in more education?: No THRIVE Score: 0 AUDIT C Alcohol Use Questionnaire (AUDIT-C) 1. How often do you have a drink containing alcohol?: Monthly or less 2. How many drinks containing alcohol do you have on a typical day when you are drinking?: 1 or 2 3. How often do you have six or more drinks on one occasion?: Less than monthly Total Score: 2 ALEJANDRINA-7 AMB Questionnaire ALEJANDRINA-7 Date ALEJANDRINA - 7 assessed: 01/15/25 Feeling nervous, anxious, or on edge: 1 = Several days Not being able to stop or control worryin = Not at all Worrying too much about different things: 0 = Not at all Trouble relaxin = Not at all Being so restless that it is hard to sit still: 0 = Not at all Becoming easily annoyed or irritable: 0 = Not at all Feeling afraid as if something awful might happen: 0 = Not at all Total ALEJANDRINA-7 score (0-4 normal; 5-9 mild; 10-14 moderate; 15-21 severe): 1 Source: Developed by Drs. Chai Burnham, Zeinab Aponte, Bashir Montejo and colleagues, with an educational shade from [employer]. Physical exam (Primary Care) Vital Signs: Last Vital Signs Temp 97.7 F 01/15/25 13:01 Pulse 103 H 01/15/25 13:01 BP 138/84 01/15/25 13:01 Pulse Ox 99 01/15/25 13:01 Oxygen Delivery Method Room Air 01/15/25 13:01 BMI result Body Mass Index 28.5 Tobacco/Smoking Status: Tobacco use Status Tobacco use date assessed 01/15/25 01/15/25 13:02 Patient Tobacco Use Status Never used Tobacco 01/15/25 13:02 e-Cigarette/Vaping Use Never Used 01/15/25 13:02 PHQ-9: PHQ-9 Score PHQ-9: Total score 0 01/15/25 13:31 Thrive Assessment: Date of Thrive Assessment Date Thrive assessed 01/15/25 01/15/25 13:02 Coding Level of Care Code Est Pt Level 4 (78116) Complex EM visit Add On G2211 Diagnoses Gait disorder R26.9 Alcohol abuse F10.10 Ankylosing spondylitis M45.9 Assessment & Plan Assessment & Plan (1) Gait disorder: Code(s): R26.9 - Unspecified abnormalities of gait and mobility Category: Medical Plan: Posterior Column disorder. Most likely due to alcohol abuse. Counselled to stop drinking (2) Alcohol abuse: Code(s): F10.10 - Alcohol abuse, uncomplicated Category: Social Hx Plan: As above. (3) Ankylosing spondylitis: Code(s): M45.9 - Ankylosing spondylitis of unspecified sites in spine Category: Medical Plan: X ray of spine has been reported with suspicion of . Patient reports no stiffness. BW ordered. Plan History of Present Illness - The patient is a 74-year-old male presenting with concerns of diarrhea, back pain, and wobbliness. - Lactose intolerance: The patient identified lactose intolerance as the cause of his diarrhea, which occurs after consuming coffee with CoffeeMate or yogurt. - Lactose intolerance: He has been managing the condition with lactase supplements, which have generally been effective except for an episode on the day of the visit. - Chronic back pain: The patient reports a history of back pain since [place] in 1990, related to herniated discs at L4, L5, and S1. - Chronic back pain: Despite the pain, he maintains full range of motion and does not find it restrictive. - Tardive dyskinesia: The patient reports symptoms of wobbliness and hand tremors, which he associates with medication use. - Tardive dyskinesia: He has experienced falls but not recently, and he is able to perform daily activities such as dressing and driving. Social History - Substance use: The patient reports occasional alcohol consumption. Review of Systems - Gastrointestinal: Reports diarrhea associated with lactose consumption. Denies other gastrointestinal symptoms. - Musculoskeletal: Reports chronic back pain since 1990. Denies restriction in movement. - Neurological: Reports wobbliness and hand tremors. Denies recent falls, difficulty with daily activities, or chewing difficulties. Physical Exam General: Cooperative and healthy appearing Nutritional Appearance: Well nourished Orientation/consciousness: Patient oriented x3 Limitations: No limitations Head: Normal to inspection General: Appearance normal, both eyes and all related structures Neck: Normal visual inspection Chest: Normal palpation of entire chest wall Respiratory: Patient reports coughing up, especially first thing in the morning, but not the volume of what it was back in November. ormal respiratory effort Neurology: Patient oriented x3. Reports feeling wobbly a lot of times, with abnormal gait and occasional hand shaking. Has fallen in the past but not recently. Able to put on clothes and drive. No issues with food falling apart while eating or chewing. Noticed shakiness when reaching for a cup of coffee. Results - Imaging: X-ray results were normal. - Labs: Blood work results were normal. Plan 1. Lactose Intolerance - Continue lactase supplements to manage symptoms. - Monitor for any recurrence of symptoms and adjust dietary intake accordingly. 2. Chronic Back Pain - Maintain current activity level as tolerated. - Consider further evaluation if symptoms worsen or become restrictive. 3. Tardive Dyskinesia - Monitor symptoms and assess medication use for potential contributors. - Evaluate fall risk and implement safety measures as needed. Discussion Notes During the visit, we discussed the management of lactose intolerance with lactase supplements and dietary adjustments. We also reviewed the patient's chronic back pain, emphasizing maintaining activity levels and considering further evaluation if symptoms worsen. Tardive dyskinesia was addressed by monitoring symptoms and assessing medication use, with a focus on fall prevention strategies. Patient Instructions - Continue taking lactase supplements as needed. - Monitor for any recurrence of diarrhea and adjust your diet accordingly. - Maintain your current activity level and report any changes in back pain. - Be cautious of fall risks and ensure your home is safe.
--- OUTSIDE RECORDS SUMMARY | 2025-01-15 13:45 | XMS_ITS | Patient Health Record ---
Author Organization [facility] Address [address] [place] [address] Care Team Providers Care Finisher Operator Name Role Phone Svitlana Mckenzie Primary Care Provider Chai Rothman Unavailable [phone] Allergies No Known Allergies Results Component Value Reference Range Notes Pathology Reviewed date:06/13/2024 11:39:55 PM Interpretation: Performing Lab:[facility], [address] [place] [phone] Notes/Report: Reason For Referral Referred Organization [facility] Referred Provider Chai Owen Referred Address [address],[place], [place],[address], Referred Provider Specialty Gastroentero logy General Notes Carol Tom 024 01:39:01 PM EDT > [facility]. Owen on 05-26-24 [phone] ext [phone] Referral Priority Routine Medications Medication SIG (Take, Route, Fr equency, Duration) Notes Start Date End Date Status Vitamin B-12 1000 MCG Oral for 90 Active Multivitamin Active Immunizations Vaccine Route Administration Date Status Comme nts Influenza Unknown 04/18/2018 Administered Social History Tobacco Use: Social History Observation Description Date Details (start date - stop date) Never Smoker NA - NA Tobacco Use/Smoking Question Answer Notes Patient is a nonsmoker Alcohol Screen Question Answer Notes Did you have a drink contain ing alcohol in the past year? Yes How often did you have a dri nk containing alcohol in the past year? 4 or more times a week (4 points) How many drinks did you have on a typical day when you were drinking in the past year? 5 or 6 drinks (2 points) Points 6 Interpretation Positive Section Notes: Nosmoker; 3-4 beers QD and a glass of wine QD Nosmoker; 1-2 beers QD and a glass of wine QD Problems Problem Type SNOMED Code ICD Code Onset Dates Problem Status W/U Status Risk Notes Problem 51005682 Rectal bleeding (K62.5) Active confirmed Problem 460991986 Encounter for screening for malignant neoplasm of colon (Z12.11) Active confirmed Problem Diverticulosis o f large intestine without perforation or abscess without bleeding (K57.30) Active confirmed Problem 648589415 Hx of adenomatou s colonic polyps (Z86.010) Active confirmed Problem 857488601146763 Pre-procedural examination (Z01.818) Active confirmed Problem 793696193 Fecal soiling (R15.1) Active confirmed Vital Signs Blood pressure diastolic 00 mm Hg 01/25/2024 Height 74 in 01/25/2024 Blood pressure systolic 00 mm Hg 01/25/2024 Weight 224 lbs 01/25/2024 BMI 28.76 kg/m2 01/25/2024 Encounters Encounter Location Date Provider Diagnosis [facility] Outpatient [address] [place] [id number] 05/26/2024 Chai Owen Colon cancer screeni ng Z12.11 ; Colon polyps K63.5 ; Diverticulosis of large intestine without perforation or abscess without bleeding K57.30 and Other hemorrhoids K64.8 [facility] [address] [place] [phone] 01/25/2024 Chai Owen Encounter for screen ing for malignant neoplasm of colon Z12.11 ; Pre-procedural examination Z01.818 and Hx of adenomatous colonic polyps Z86.010 [facility] [address] [place] [phone] 06/12/2024 Chai Owen Assessments Encounter Date Diagnosis (ICD Code) Assessment Notes Treatment Notes Treatment Clinical Notes Section Notes 05/26/2024 Colon cancer screening (ICD-10 - Z12.11) 05/26/2024 Colon polyps (ICD-10 - K63.5) 01/25/2024 Encounter for screening for malignant neoplasm of colon (ICD-10 - Z12.11) Overall, Antonia appears well. Given his history of the significant polyp removed in 2004 and no subsequent colonoscopies to his 2010 colonoscopy, I did recommend a followup colonoscopy for further screening purposes. We did review the rationale for that in regard to colon cancer prevention. Full consent was obtained for this, including risks of bleeding and perforation. The procedure will be done with monitored anesthesia care. Antonia was comfortable with this plan. Thank you again for allowing me to participate in Antonia's care. I shall continue to keep you advised of his progress. 01/25/2024 Pre-procedural examination (ICD-10 - Z01.818) Overall, Antonia appears well. Given his history of the significant polyp removed in 2004 and no subsequent colonoscopies to his 2010 colonoscopy, I did recommend a followup colonoscopy for further screening purposes. We did review the rationale for that in regard to colon cancer prevention. Full consent was obtained for this, including risks of bleeding and perforation. The procedure will be done with monitored anesthesia care. Antonia was comfortable with this plan. Thank you again for allowing me to participate in Antonia's care. I shall continue to keep you advised of his progress. 05/26/2024 Diverticulosis of large intestine without perforation or abscess without bleeding (ICD-10 - K57.30) 01/25/2024 Hx of adenomatous colonic polyps (ICD-10 - Z86.010) Overall, Antonia appears well. Given his history of the significant polyp removed in 2004 and no subsequent colonoscopies to his 2010 colonoscopy, I did recommend a followup colonoscopy for further screening purposes. We did review the rationale for that in regard to colon cancer prevention. Full consent was obtained for this, including risks of bleeding and perforation. The procedure will be done with monitored anesthesia care. Antonia was comfortable with this plan. Thank you again for allowing me to participate in Antonia's care. I shall continue to keep you advised of his progress. 05/26/2024 Other hemorrhoids (ICD-10 - K64.8) Plan Of Treatment Future Test Test Name Order Date COLONOSCOPY 12/08/2018 COLONOSCOPY 01/25/2024 Insurance Providers Payer Name Payer Address Payer Phone Subscriber Number Group Number Insured Name Patient Relationship to Insured Coverage Start Date Coverage End Date [facility] [employer] [address] [place] [id number] ANTONIA COHN Self - patient is the insured Medical (General) History Medical History History ICD Code Denies [place],DM,CVA,Lung disease,renal dise ase Colonoscopy in 06/2005 with a 1.0 cm tubular adenoma with high grade dysplasia removed; negative colonoscopy in 07/2009. Surgical History Surgery Date(Month/Year) Cataracts 2022
== END 2025-01-15 13:45 | disposition home or self-care (01) ==
LOC: HO.HMCHD 13:17
PROVIDERS: PCP Internal Medicine; Visit Provider Internal Medicine
DX: R26.9 Unspecified abnormalities of gait and mobility (principal); F10.10 Alcohol abuse, uncomplicated; M45.9 Ankylosing spondylitis of unspecified sites in spine

== ENCOUNTER → 2025-01-15 13:16 | Outpatient (BNVA) | payer MEDICARE, OTHER, SELFPAY | PROVIDERS: PCP Internal Medicine; Visit Provider Internal Medicine | DX: R26.9 Unspecified abnormalities of gait and mobility (principal); F10.10 Alcohol abuse, uncomplicated; M54.9 Dorsalgia, unspecified | CPT/HCPCS: 99212 ==

== ENCOUNTER 2025-01-18 13:49 | Outpatient (REF) | payer MEDICARE, OTHER, SELFPAY ==
--- OUTSIDE RECORDS SUMMARY | 2023-10-13 09:40 | XMS_ITS ---
Author Organization [facility] Address [address] [place] [address] Care Team Providers Care Gynecological Assistant Name Role Phone Svitlana Mckenzie Primary Care Provider Chai Rothman [phone] REASON FOR VISIT Patient presents today for a screening colon Encounters Encounter Location Date Provider Diagnosis [facility] [address] [place] [address] 10/13/2023 Chai Owen Plan Of Treatment No Information Progress Notes * LALIT ANTONIA ADOB: [birth year] (74 yo M)Acc No.[id number]:10/13/2023 Progress Notes Patient: ANTONIA PEDROZA Provider: Mp Owen MD :1950 A ge:72 Y S ex:Male Date:10/13/2023 Address:[address] [place] [address], [facility] Pcp:Svitlana Mckenzie Subjective: * Chief Complaints: * 1 . Patient presents today for a screening colon. * Medical History: Objective: * Vitals: Assessment: Plan: * Treatment: * * The named appointment provid er may or may not be the originator of this progress note, and it is not deemed complete until electronically signed by the appointment provider. Sign off status: Pending * Provider: Mp Owen MD Date: 0 10/13/2023 Generated for Monalisai ng/Fasholag/eTransmitting on: 0 01/18/2025 01:53 PM EDT
--- OUTSIDE RECORDS SUMMARY | 2023-11-11 11:00 | XMS_ITS ---
Author Organization [facility] Address [address] [place] [place] [address] Care Team Providers Care Fuel Truck Driver Name Role Phone Mannie Jamil MD Primary Care Provider Frederick Durham Unavailable [phone] Encounters Encounter Location Date Provider Diagnosis [facility] [address] [place] [address] [address] [place] [address] 11/11/2023 Frederick Dwyer Plan Of Treatment No Information Progress Notes * JAYLENEValentin LEMUS ADOB: [birth year] (74 yo M)Acc No.[id number]:11/11/2023 Progress Note Patient: Valentin PEDROZA Provider: Christina Dwyer DPM :1950 A ge:72 Y S ex:Male Date:11/11/2023 Address:[address] [place] [address] [address], [place] Pcp:Mannie Jamil MD Subjective: * Chief Complaints: * * Medical History: Objective: * Vitals: Assessment: Plan: * Treatment: * Images: * The named appointment provid er may or may not be the originator of this progress note, and it is not deemed complete until electronically signed by the appointment provider. Sign off status: Pending * Provider: Christina Dwyer DPM Date: 11/11/2023 Generated for Monalisai ng/Fasholag/eTransmitting on: 01/18/2025 01:53 PM EDT
[2025-01-18 16:35] LABS: Uric Acid 6.9 mg/dL (3.4-7.0)
== END 2025-01-18 13:50 | disposition home or self-care (01) ==
LOC: HO.HMGCLDS 13:49
PROVIDERS: PCP Internal Medicine; Visit Provider Internal Medicine
DX: M10.9 Gout, unspecified (principal)
CPT/HCPCS: 36415; 84550

== ENCOUNTER 2025-01-29 11:25 | Outpatient (AMB) | payer MEDICARE, OTHER, SELFPAY ==
--- NOTE | 2025-01-29 11:38 | MHC.PC.OV ---
Vital Signs 01/29/25 11:44 Height 6 ft 2 in Weight 220 lb BMI 28.2 BP 140/88 H Blood Pressure Location Lt brachial Position Sitting Respiration 16 Pulse 105 H Pulse Source Pulse Oximeter Temp 97.4 F Temp Source Temporal Artery Scan Pulse Oximetry (%) 97 Oxygen Delivery Method Room Air Intake Visit Reasons: F/U re: big toe ? 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 gout HPI Details 74-year-old male presents to the office for a sick visit. Patient believes he has gout. Week ago, his great toe on the left foot begin hurting and throbbing. He took allopurinol which belonged to his girlfriend and found relief in the medications. She had only 3 or 4 pills to spare. Subsequently he has noticed some swelling around the toe. Would like to get on allopurinol indefinitely. Patient reports that his alcohol consumption continues. [facility] Medical History (Updated 01/15/25 @ 13:48 by Paul Cruz MD) Ankylosing spondylitis Alcohol abuse Gait disorder Hypercholesteremia No pertinent past medical history Surgical History Hx of cataract extraction H/O colonoscopy (~05/26/24) Family History Mother No problems noted. Father No problems noted. Social History Housing: Apartment Patient Tobacco Use Status: Never used Tobacco e-Cigarette/Vaping Use: Never Used service: Yes Current occupational status: retired Cognitive needs: No Hearing needs: No Vision needs: No Questionnaire Thrive Questionnaire Date Thrive assessed: 01/15/25 ALEJANDRINA-7 AMB Questionnaire ALEJANDRINA-7 Date ALEJANDRINA - 7 assessed: 01/15/25 Source: Developed by Drs. Chai Burnham, Zeinab Aponte, Bashir Montejo and colleagues, with an educational shade from [employer]. Physical exam (Primary Care) Vital Signs: Last Vital Signs Temp 97.4 F 01/29/25 11:44 Pulse 105 H 01/29/25 11:44 Resp 16 01/29/25 11:44 BP 140/88 H 01/29/25 11:44 Pulse Ox 97 01/29/25 11:44 Oxygen Delivery Method Room Air 01/29/25 11:44 BMI result Body Mass Index 28.2 Tobacco/Smoking Status: Tobacco use Status Tobacco use date assessed 01/15/25 01/29/25 11:46 Patient Tobacco Use Status Never used Tobacco 01/29/25 11:46 e-Cigarette/Vaping Use Never Used 01/29/25 11:46 Thrive Assessment: Date of Thrive Assessment Date Thrive assessed 01/15/25 01/29/25 11:46 Extrem Other: Left foot: Great toe: Minimal discomfort at the metatarsophalangeal joint. Able to flex and extend the toe with minimal discomfort. Coding Level of Care Code Est Pt Level 3 (34745) Complex EM visit Add On G2211 Diagnoses Acute gout M10.9 Assessment & Plan Assessment & Plan (1) Acute gout: Code(s): M10.9 - Gout, unspecified Plan: Patient may have had symptoms of acute gout. However allopurinol is not appropriate. Indomethacin has been prescribed for acute flare-ups. Should he have more than 1 or 2 flare-ups, I will consider using allopurinol on a regular basis. Patient was educated on the same.
[2025-01-29 11:44] VITALS: BP 140/88; PULSE 105; RESP 16; TEMP 36.3; O2SAT 97; BMI 28.2
--- OUTSIDE RECORDS SUMMARY | 2025-01-29 12:37 | XMS_ITS | Patient Health Record ---
Author Organization [facility] Address [address] [place] [address] Care Team Providers Care Radio Electrician Name Role Phone Svitlana Mckenzie Primary Care Provider Chai Rothman Unavailable [phone] Allergies No Known Allergies Results Component Value Reference Range Notes Pathology Reviewed date:06/13/2024 11:39:55 PM Interpretation: Performing Lab:[facility], [address] [place] [phone] Notes/Report: Reason For Referral Referred Organization [facility] Referred Provider Chai Owen Referred Address [address],[place], [place],[address], Referred Provider Specialty Gastroentero logy General Notes Carol Tom 024 01:39:01 PM EDT > [facility] the [facility]. Owen on 05-26-24 [phone] ext [phone] Referral Priority Routine Medications Medication SIG (Take, [...] Problem Status W/U Status Risk Notes Problem 99113311 Rectal bleeding (K62.5) Active confirmed Problem 498967261 Encounter for screening for malignant neoplasm of colon (Z12.11) Active confirmed Problem Diverticular disease of colon (790671058) Diverticulosis of large intestine without perforation or abscess without bleeding (K57.30) Active confirmed Problem 667670307 Hx of adenomatou s colonic polyps (Z86.010) Active confirmed Problem 614210020907435 Pre-procedural examination (Z01.818) Active confirmed Problem 013379479 Fecal soiling (R15.1) Active confirmed Encounters Encounter Location Date Provider Diagnosis [facility] Outpatient [address] [place] [phone] 05/26/2024 Chai Owen Colon cancer screeni ng Z12.11 ; Colon polyps K63.5 ; Diverticulosis of large intestine without perforation or abscess without bleeding K57.30 and Other hemorrhoids K64.8 [facility] [address] [place] [address] 06/12/2024 Chai Owen Assessments Encounter Date Diagnosis [...] Insured Coverage Start Date Coverage End Date [facility] [employer] [address] [place] [id number] ANTONIA COHN Self - patient is the insured Medical (General) History Medical History History ICD Code Denies [place],DM,CVA,Lung disease,renal dise ase Colonoscopy in 06/2005 with a 1.0 cm tubular adenoma with high grade dysplasia removed; negative colonoscopy in 07/2009. Surgical History Surgery Date(Month/Year) Cataracts 2022
== END 2025-01-29 11:54 | disposition home or self-care (01) ==
LOC: HO.HMCHD 11:26
PROVIDERS: PCP Internal Medicine; Visit Provider Internal Medicine
DX: M10.9 Gout, unspecified (principal)

== ENCOUNTER → 2025-01-29 11:25 | Outpatient (BNVA) | payer MEDICARE, OTHER, SELFPAY | PROVIDERS: PCP Internal Medicine; Visit Provider Internal Medicine | DX: M10.9 Gout, unspecified (principal) | CPT/HCPCS: 99212 ==

== ENCOUNTER 2025-04-16 13:35 | Outpatient (AMB) | payer MEDICARE, OTHER, SELFPAY ==
--- OUTSIDE RECORDS SUMMARY | 2023-11-11 11:00 | XMS_ITS ---
Author Organization [facility] Address [address] [place] [address] Care Team Providers Care Major Case Detective Name Role Phone Mannie Jamil MD Primary Care Provider Frederick Durham Unavailable [phone] Encounters Encounter Location Date Provider Diagnosis [facility] [address] [place] [address] [address] [place] [address] 11/11/2023 Frederick Dwyer Plan Of Treatment No Information Progress Notes * JAYLENEValentin LEMUS ADOB: [birth year] (74 yo M)Acc No.[id number]:11/11/2023 Progress Note Patient: Valentin PEDROZA Provider: Christina Dwyer DPM :1950 A ge:72 Y S ex:Male Date:11/11/2023 Address:[address] [place] [address] [address], [place] Pcp:Mannie Jamil MD Subjective: * Chief Complaints: [...] Date: 11/11/2023 Generated for Monalisai ng/Fasholag/eTransmitting on: 0 04/16/2025 03:11 PM EDT
--- OUTSIDE RECORDS SUMMARY | 2023-12-27 10:00 | XMS_ITS ---
Author Organization [facility] Address [address] [place] [address] Care Team Providers Care Bench Technician Name Role Phone Mannie Jamil MD Primary Care Provider Frederick Durham Unavailable [phone] Encounters Encounter Location Date Provider Diagnosis [facility] [address] [facility] [address] [place] [address] 12/27/2023 Frederick Dwyer Plan Of Treatment No Information Progress Notes * JAYLENEValentin LEMUS ADOB: [birth year] (74 yo M)Acc No.[id number]:12/27/2023 Progress Note Patient: Valentin PEDROZA Provider: Christina Dwyer DPM :1950 A ge:73 Y S ex:Male Date:12/27/2023 Address:[address] [place] [address] [address] [place] Pcp:Mannie Jamil MD Subjective: * Chief Complaints: [...] Date: 12/27/2023 Generated for Monalisai ng/Fasholag/eTransmitting on: 0 04/16/2025 03:11 PM EDT
--- OUTSIDE RECORDS SUMMARY | 2024-05-26 04:40 | XMS_ITS ---
Author Organization [facility] Address [address] [place] [address] Care Team Providers Care Food Service Team Member Name Role Phone Svitlana Mckenzie Primary Care Provider Chai Rothman [phone] REASON FOR VISIT screening,hx polyps Problems Problem Type SNOMED Code ICD Code Onset Dates Problem Status W/U Status Risk Notes Problem Diverticular disease of colon (738246868) Diverticulosis of large intestine without perforation or abscess without bleeding (K57.30) Active confirmed Encounters Encounter Location Date Provider Diagnosis [facility] Outpatient [address] [place], [place] [address] 05/26/2024 Chai Owen Colon cancer scree martinez [...] ANTONIA COHN ADOB: [birth year] (74 yo M)Acc No.[id number]:05/26/2024 COLON WITH MAC Patient: ANTONIA PEDROZA Provider: Mp Owen MD :1950 A ge:73 Y S ex:Male Date:05/26/2024 Address:[address] [place], [place] [address] Pcp:Svitlana Mckenzie Subjective: * Chief Complaints: * [...] Date: 07/26/2023 Generated for Yamile traore/Manda/Traysmitting on: 0 04/16/2025 03:11 PM EDT
--- NOTE | 2025-04-16 13:38 | MHC.PC.OV ---
Vital Signs 04/16/25 13:46 Height 6 ft 2 in Weight 102.512 kg BMI 29.0 BP 162/82 H Respiration 16 Pulse 117 H Pulse Source Pulse Oximeter Temp 97.6 F Temp Source Temporal Artery Scan Pulse Oximetry (%) 96 Oxygen Delivery Method Room Air Intake Visit Reasons: 3 month f/u Last Turner Required: No Accompanied by: Self / Same As Patient Allergies No Known Allergies Allergy (Verified 04/16/25 13:40) Medication List - Last Reconciled 04/16/25 by COMPA Alexandra econazole nitrate 1% appl topical BID folic acid 1 mg PO DAILY indomethacin 50 mg PO BID multivitamin 1 tab PO DAILY trazodone 200 mg (2 x 100 mg) PO BEDTIME Tobacco use date assessed: 01/15/25 Dental Screening Dental Screen Date: 01/15/25 HPI HPI Comments History of Present Illness Details 74-year-old male with history of hypercholesterolemia, alcohol use disorder, ankylosing spondylitis, gout, insomnia, venous stasis presenting to the office today for management of chronic conditions. Last seen by Dr. Porter 01/2025. He is also following with Dr. Barajas at the [facility]. Gout-initial episode 01/2025. Took Voltaren. Now on indomethacin as needed. No further episodes Hypercholesterolemia-last LDL 90. Not on statin Alcohol use disorder-reports drinking 2-3 beers per day as well as a glass of wine and has been doing this for some time. He does not have any intention of cutting back or quitting. S/p appendectomy and umbilical hernia repair [facility] March 23. Apparently there was an abnormality of the appendix and is following with the [facility] for evaluation Insomnia-taking trazodone 200 mg nightly Concerns: Lightheadedness-will last for up to several hours. Denies any room spinning dizziness or falls. Does report unsteady gait. Sometimes happens when he wakes up in the morning or later in the day. No other associated symptoms. He is noted to be tachycardic at 01:11 in the office today as well as hypertensive. Question whether this is related to alcohol use Intention tremor Neuropathy Health maintenance: Last colonoscopy 05/2024 with 3 tubular adenoma noted, 2 year follow-up advised. Dr. Owen ROS: See HPI EXAM: Constitutional - Awake and Alert, No apparent distress Eyes - PERRL Cardiovascular - S1S2, RR, tachycardic, No edema Respiratory - Normal lung expansion, Normal respiratory effort, No respiratory distress, CTA bilaterally Extremities - no calf tenderness bilaterally, no swelling Skin - Warm/Dry Neurological - Alert & oriented x3. Abnormal tandem gait- stepping off line, unsteady, wide base support. Horizontal nystagmus, otherwise CN II-XII intact. Intention tremor noted with outstretched hands Psychological - Appropriate affect [facility] Medical History (Updated 04/16/25 @ 16:07 by COMPA Alexandra) Tubular adenoma Cerebellar ataxia Ankylosing spondylitis Alcohol abuse Gait disorder Hypercholesteremia No pertinent past medical history Surgical History (Updated 04/16/25 @ 14:35 by COMPA Alexandra) S/P appendectomy Status post umbilical hernia repair, follow-up exam Hx of cataract extraction H/O colonoscopy (~05/26/24) Family History Mother No problems noted. Father No problems noted. Social History Housing: Apartment Patient Tobacco Use Status: Never used Tobacco e-Cigarette/Vaping Use: Never Used service: Yes Current occupational status: retired Cognitive needs: No Hearing needs: No Vision needs: No Questionnaire Thrive Questionnaire Date Thrive assessed: 01/15/25 ALEJANDRINA-7 AMB Questionnaire ALEJANDRINA-7 Date ALEJANDRINA - 7 assessed: 01/15/25 Source: Developed by Drs. Chai Burnham, Zeinab Aponte, Bashir Montejo and colleagues, with an educational shade from [employer]. Physical exam (Primary Care) Vital Signs: Last Vital Signs Temp 97.6 F 04/16/25 13:46 Pulse 117 H 04/16/25 13:46 Resp 16 04/16/25 13:46 BP 162/82 H 04/16/25 13:46 Pulse Ox 96 04/16/25 13:46 Oxygen Delivery Method Room Air 04/16/25 13:46 BMI result Body Mass Index 29.0 Tobacco/Smoking Status: Tobacco use Status Tobacco use date assessed 01/15/25 04/16/25 13:40 Patient Tobacco Use Status Never used Tobacco 04/16/25 13:40 e-Cigarette/Vaping Use Never Used 04/16/25 13:40 Thrive Assessment: Date of Thrive Assessment Date Thrive assessed 01/15/25 04/16/25 13:40 Coding Level of Care Code Est Pt Level 4 (39818) Complex EM visit Add On G2211 Diagnoses Cerebellar ataxia G11.9 Lightheadedness R42 Tachycardia R00.0 Hypercholesteremia E78.00 Alcohol abuse F10.10 Hyperbilirubinemia E80.6 Assessment & Plan Assessment & Plan (1) Cerebellar ataxia: Code(s): G11.9 - Hereditary ataxia, unspecified Category: Medical Plan: Suspect this is related to alcohol use. However, will assess on brain MRI to rule out other possible causes of ataxia (2) Lightheadedness: Code(s): R42 - Dizziness and giddiness Category: Medical Plan: Again suspect this is likely related to alcohol use. However will check echocardiogram and Holter monitor. EKG performed in the office today is reassuring, no dysrhythmia (3) Tachycardia: Code(s): R00.0 - Tachycardia, unspecified Category: Medical Plan: As above (4) Hypercholesteremia: Code(s): E78.00 - Pure hypercholesterolemia, unspecified Category: Medical Plan: Controlled. (5) Alcohol abuse: Code(s): F10.10 - Alcohol abuse, uncomplicated Category: Social Hx Plan: Strongly advised cessation. Discussed risks of ongoing alcohol use (6) Hyperbilirubinemia: Code(s): E80.6 - Other disorders of bilirubin metabolism Category: Medical Plan: Liver panel ordered. Has ultrasound of the liver scheduled by the [place] and upcoming months Plan Follow-up in the office in 2 months for evaluation of tachycardia/lightheadedness/gait ataxia Orders: Orders MR head/brain wo con Today F10.10 - Alcohol abuse, uncomplicated, G11.9 - Hereditary ataxia, unspecified, R00.0 - Tachycardia, unspecified, R42 - Dizziness and giddiness AMB EKG-In Office Today E78.00 - Pure hypercholesterolemia, unspecified, E80.6 - Other disorders of bilirubin metabolism, F10.10 - Alcohol abuse, uncomplicated, R00.0 - Tachycardia, unspecified, R42 - Dizziness and giddiness ECG 3 day holter monitor Today F10.10 - Alcohol abuse, uncomplicated, R00.0 - Tachycardia, unspecified, R42 - Dizziness and giddiness [facility] echo transthoracic complete Today F10.10 - Alcohol abuse, uncomplicated, R00.0 - Tachycardia, unspecified, R42 - Dizziness and giddiness Complete Blood Count Auto Diff 2 Months D75.89 - Other specified diseases of blood and blood-forming organs, E80.6 - Other disorders of bilirubin metabolism Liver Panel 2 Months D75.89 - Other specified diseases of blood and blood-forming organs, E80.6 - Other disorders of bilirubin metabolism Vitamin B12 2 Months D75.89 - Other specified diseases of blood and blood-forming organs, E80.6 - Other disorders of bilirubin metabolism Medications: New ammonium lactate 12% 1 appl topical BID 400 grams 0RF metoprolol succinate ER 25 mg PO DAILY 90 tabs 0RF Changed From trazodone 100 mg PO BID To trazodone 200 mg (2 x 100 mg) PO BEDTIME 180 tabs 1RF
[2025-04-16 13:46] VITALS: BP 162/82; PULSE 117; RESP 16; TEMP 36.4; O2SAT 96; BMI 29.0
--- OUTSIDE RECORDS SUMMARY | 2025-04-16 15:11 | XMS_ITS | Patient Health Record ---
Author Organization [facility] Address [address] [place] [address] Care Team Providers Care Cash Applications Clerk Name Role Phone Svitlana Mckenzie Primary Care Provider Chai Rothman [phone] Allergies No Known Allergies Results Component Value Reference Range Notes Pathology Reviewed date:06/13/2024 11:39:55 PM Interpretation: Performing Lab:[facility], [address] [place] [id number] Notes/Report: Reason For Referral No Information Medications Medication SIG (Take, Route, Fr equency, [...] Problem Status W/U Status Risk Notes Problem 39794478 Rectal bleeding (K62.5) Active confirmed Problem 472349636 Encounter for screening for malignant neoplasm of colon (Z12.11) Active confirmed Problem Diverticular disease of colon (281813397) Diverticulosis of large intestine without perforation or abscess without bleeding (K57.30) Active confirmed Problem 042530476 Hx of adenomatou s colonic polyps (Z86.010) Active confirmed Problem [id number] Pre-procedural examination (Z01.818) Active confirmed Problem 239468031 Fecal soiling (R15.1) Active confirmed Encounters Encounter Location Date Provider Diagnosis [facility] Outpatient [address], [place] [id number] 05/26/2024 Chai Owen Colon cancer screeni ng Z12.11 ; Colon polyps K63.5 ; Diverticulosis of large intestine without perforation or abscess without bleeding K57.30 and Other hemorrhoids K64.8 [facility] [address] [place] [address] 06/12/2024 Chai Owen Assessments Encounter Date Diagnosis [...] Insured Coverage Start Date Coverage End Date [facility] [address] [place] [address] [id number] ANTONIA COHN Self - patient is the insured Medical (General) History Medical History History ICD Code Denies [place],DM,CVA,Lung disease,renal dise ase Colonoscopy in 06/2005 with a 1.0 cm tubular adenoma with high grade dysplasia removed; negative colonoscopy in 07/2009. Surgical History Surgery Date(Month/Year) Cataracts 2022
--- OUTSIDE RECORDS SUMMARY | 2025-04-16 15:12 | XMS_ITS | Clinical Summary ---
Author Organization [facility] Address [address] [place] [address] Phone Care Team Providers Care Hand Sample Maker Name Role Phone Physician, Pcp Unknown Primary Care Provider Aye vailable Allergies No known active allergies Medications pantoprazole (PROTONIX) 20 mg EC tablet Take 1 tablet (20 mg total) by mouth 1 (one) time each day before breakfast. Do not crush, chew, or split. Active traZODone (DESYREL) 100 mg tablet Take 1 mg by mouth at bedtime. Active oxyCODONE (ROXICODONE) 5 mg immediate release tablet Take 1 tablet (5 mg total) by mouth every 4 (four) hours if needed for severe pain. Max Daily Amount: 30 mg 12 tablet 03/23/2025 Active acetaminophen (TYLENOL) 500 mg tablet Take 2 tablets (1,000 mg total) by mouth every 8 (eight) hours for 5 days. 30 tablet 03/23/2025 03/28/20 25 docusate sodium (COLACE) 100 mg capsule Take 1 capsule (100 mg total) by mouth 2 (two) times a day for 10 days. 20 each 03/23/2025 04/02/20 25 cephalexin (KEFLEX) 500 mg capsule Take 1 capsule (500 mg total) by mouth 2 (two) times a day for 5 days. 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 (CMS/HCC V24, CMS/HCC V28) (Primary Dx); Low grade mucinous neoplasm of appendix; Ventral hernia with gangrene; History of laparoscopic appendectomy; History of ventral hernia repair; Central obesity; Diastasis recti; Loose stools 03/23/2025 2:55 PM EDT Anesthesia Event [facility] OR [address] [place] [phone] Caleb Rosenberg MD Gomes, Sheldon B, MD 03/23/2025 2:00 PM EDT - 03/23/2025 4:00 PM EDT Surgery [facility] OR [address] [place] [phone] Miguel Angel Arreola MD REPAIR HERNIA UMBILICAL 03/22/2025 2:50 PM EDT - 03/23/2025 10:48 PM EDT Emergency [facility] Urology Unit [address] [place] [phone] Jude Pérez MD Fiallo, Viriato M, MD Incarcerated umbilical hernia (Primary Dx) Discharge Disposition: Home or Self Care from Last 3 Months Social History Tobacco Use Types Packs/Day Years Used Date Smoking Tobacco: Never Smokeless Tobacco: Never Tobacco Cessation:Counseling Given: Not Answered Interpersonal Safety Answer Date Record ed Physical Abuse Unrecognized value 03/22/2025 Verbal Abuse Unrecognized value 03/22/2025 Sex and Gender Information Value Date Recorded Sex Assigned at Not on file Legal Sex Male 2:42 PM EDT Gender Identity Not on file Sexual Orientation Not on file Obstetrics History Last Filed Vital Signs Vital Sign Reading Time Taken Comments Blood Pressure 156/93 04/04/2025 8:08 AM EDT Pulse 112 04/04/2025 8:08 AM EDT Temperature 36.2 C (97.1 F) 04/04/2025 8:08 AM EDT Respiratory Rate 16 03/23/2025 7:03 PM EDT Oxygen Saturation 95% 03/23/2025 7:06 PM EDT Inhaled Oxygen Concentration - - Weight 100 kg (221 lb) 04/04/2025 8:08 AM EDT Height 182.9 cm (6' 0.01 ) 03/22/2025 7:51 PM ED T Body Mass Index 29.97 03/22/2025 7:51 PM EDT Plan of Treatment Upcoming Encounters Date Type Department Care Team (Late st Contact Info) Description 04/17/2025 2:00 PM EDT Office Visit [facility] Hematology Oncology [address] [place] [phone] Verónica Che MD [address] [place] [address] 07/16/2025 11:00 AM EST Office Visit General Surgery - [place] [address] [facility] [address] [place] [address] Miguel Angel Arreola MD [address] [place] [phone] Health Maintenance Due Date Last Done Comments DTaP,Tdap,and Td Vaccines (1 - Tdap) 12/03/1971 Pneumococcal Vaccine: 50+ Years (1 of 2 - PCV) 12/03/1971 Depression Screening 07/19/2024 Hepatitis B Vaccines (2 of 3 - 19+ 3-dose series) 03/08/2025 02/08/2025 Influenza Vaccine (#1) 2025 , 05/08/2023, 04/01/2022, Additional history exists Cholesterol Screening (Lipid Panel) 03/22/2025 Hepatitis C Screening 03/22/2025 Medicare Annual Wellness Visit 03/22/2025 Social Influencers of Health Screening 03/22/2025 COVID-19 Vaccine (6 - Pfizer risk season) 2025 01/30/2025, 05/02/2022, 05/06/2021, Additional history exists Falls Risk Assessment 03/23/2026 03/23/2025 RSV Immunization Adult Patients (1 - 1-dose 75+ series) 12/03/2027 Colorectal Cancer Screening: Colonoscopy 05/26/2034 05/26/2024 Zoster Vaccines Completed 06/25/2020, 03/20, 05/21/2016 HIB Vaccines Aged Out No longer eligi ble based on patient's age to complete this topic HPV Vaccines Aged Out No longer eligi ble based on patient's age to complete this topic Hepatitis A Vaccines Aged Out No long er eligible based on patient's age to complete this topic IPV Vaccines Aged Out No longer eligi ble based on patient's age to complete this topic MMR Vaccines Aged Out No longer eligi ble based on patient's age to complete this topic Meningococcal ACWY Vaccine Aged Out N o longer eligible based on patient's age to complete this topic Meningococcal B Vaccine Aged Out No l onger eligible based on patient's age to complete this topic RSV Immunization Patients Under 20 months Aged Out No longer eligible based on patient's age to complete this topic Varicella Vaccines Aged Out No longer eligible based on patient's age to complete this topic Procedures Procedure Name Priority Date/Time Associated Diagnosis Comments ECG ANNOTATED 03/27/2025 TISSUE EXAM Routine 03/23/2025 3:53 PM EDT Incarcerated umbilical hernia TH AN ENDOTRACHEAL(NO CHARGE) Routine 03/23/2025 3:10 PM EDT OR LAPAROSCOPY SURGICAL APPENDECTOMY 03/23/2025 2:54 PM EDT Incarcerated umbilical hernia Appendiceal tumor REPAIR HERNIA UMBILICAL LAPAROSCOPIC 03/23/2025 2:54 PM EDT Incarcerated umbilical hernia Appendiceal tumor CBC WITH AUTO DIFFERENTIAL Routine 03/23/2025 5:48 AM EDT MAGNESIUM Routine 03/23/2025 5:48 AM EDT CBC AND DIFFERENTIAL Routine 03/23/2025 5:48 AM EDT BASIC METABOLIC PANEL Routine 03/23/2025 5:[address] ABDOMEN PELVIS W CONTRAST STAT 03/22/2025 4:56 PM EDT CBC WITH AUTO DIFFERENTIAL STAT 03/22/2025 3:50 PM EDT LACTATE, WITH REFLEX STAT 03/22/2025 3:50 PM EDT COMPREHENSIVE METABOLIC PANEL STAT 03/22/2025 3:50 PM EDT CBC AND DIFFERENTIAL STAT 03/22/2025 3:50 PM EDT CULTURE BLOOD STAT 03/22/2025 3:50 PM EDT CULTURE BLOOD STAT 03/22/2025 3:34 PM EDT from Last 3 Months Results * ECG-Annotated (03/27/2025) us Provider Onbase MD ECG ORDERABLES Final Result * Tissue exam (03/23/2025 3:53 PM EDT) Final Diagnosis Appendix, appendectomy: Mantle cell lymphoma. (See note.) Low grade mucinous neoplasm (LAMN), completely excised, see comment. Immunohistochemical studies were performed to further characterize the dense infiltrate of monomorphous small lymphocytes in the appendix. The results are as follows: CD3: Small number of lymphocytes immunoreactive. CD5: Small number of lymphocytes immunoreactive (similar to CD3). CD10: A blush of staining is present (possibly an artifact). CD20: Vast majority of small lymphocytes immunoreactive. CD23: Rare small follicular dendritic cell meshworks immunoreactive; lymphocytes are negative. BCL2: Virtually all of the lymphocytes are immunoreactive. BCL6: Virtually all of the lymphocytes are negative. Cyclin D1: Vast majority of small lymphocytes immunoreactive. SOX11: Negative. p53: Few abnormal lymphocytes are weakly immunoreactive. Ki-67: Few small lymphocytes immunoreactive (estimated at less than 10% overall). Interpretation: The vast majority of lymphocytes are small, [id number] B cells that show diffuse expression of cyclin D1 and BCL2 without expression of CD5, CD23 or BCL6. There is a blush of reactivity with CD10, but this is mainly granular appearance without convincing membranous reactivity. There is a low proliferative index with Ki-67. A p53 immunohistochemical study is negative for overexpression. Note: Histologic sections show a dense infiltrate of small, monomorphous lymphocytes with round to slightly irregular nuclear contours, coarse chromatin, inconspicuous or absent nucleoli, and scant cytoplasm. The lymphocytes show a predominantly diffuse pattern of growth although rare vague nodules are noted. The lymphoid infiltrate undermines the low grade mucinous neoplasm and also expands the distal tip of the appendix where mucinous epithelium is no longer apparent. The vast majority of the lymphocytes are B cells that express CD20, BCL2 and cyclin D1. Although CD5 and SOX11 are not coexpressed, the diffuse expression of cyclin D1 and the monomorphous cytology best support a diagnosis of mantle cell lymphoma. The proliferative index in the mantle cell lymphoma is low (defined as less than 30%), and there is no overexpression of p53 (defined as greater than 50% of cells with strong expression). The review and interpretation of the lymphoid infiltrate and immunohistochemical studies is performed and reported by Dr. Meron Harding (Hematopathology). 5 3:49 PM EDT [facility] Comment The appendix is entirely submitted. No high grade or invasive component of mucinous neoplasm is identified. It is entirely removed. However, the lymphoid tissue of the appendix is notably monotonous and prompted opinion of Dr. Harding (hematopathologist). Diagnosis discussed with Dr. Arreola by Dr. Purcell and Dr. Harding 03/28/25 12:59 PM EDT. Secondary review for new malignancy performed at intradepartmental consensus conference 03/27/25. 5 3:49 PM EDT [facility] Gross Description A. Large Intestine, Appendix, : Labeled appendix . Received in formalin is an intact, bulging, attenuated 11.5 cm in length and up to 0.5-2.1 cm in diameter appendix, with a moderate amount of mesoappendix. The proximal margin is stapled. The serosa is smooth and harmon-white. The distended region of the appendix measures 8.1 x 2.1 cm. The cut surfaces show a dilated lumen measuring up to 2.1 cm in diameter. The lumen contains copious clear mucin that distends the lumen and attenuates the mucosal lining. No discrete masses or thickening are grossly identified. The remaining proximal appendix has a lumen that ranges from pinpoint to 0.9 cm. No fecalith is grossly identified. The mucosa is huynh-white. The proximal margin, adjacent to the staple lines, is inked blue. The attached stapled line and adipose tissue are trimmed. A digital photograph is taken. The specimen is submitted in entirely, sequentially in twenty-four cassettes, from proximal to distal, (1-en face proximal margin, one piece, 2-22: central cross-sections; 2-one piece, 3-two pieces, 4-three pieces, 5-four pieces, 6-six pieces, 7-four pieces, 8-22: one piece each, 23-24: longitudinally bisected appendiceal tip, one piece each). KR 3:49 PM EDT [facility] Disclaimer NOTE: The immunohistochemical tests and in situ hybridization tests were developed and their performance characteristics were determined by [facility]. They have not been cleared or approved by the U.S. Food and Drug Administration. The FDA has determined that such clearance or approval is not necessary. These tests are used for clinical purposes. They should not be regarded as investigational or for research. This laboratory is certified under the Clinical Laboratory Improvement Amendments of 1988 (CLIA) as qualified to perform high complexity clinical laboratory testing. (controls appropriate) Unless otherwise specified, all tissue is 10% NB formalin fixed and paraffin embedded. 3:49 PM EDT [facility] Tissue Appendix structure / Unknown 03/23/2025 3:53 PM EDT 03/26/2025 5:19 AM EDT us Miguel Angel Arreola MD LAB PATHOLOGY ORDERABLES Final Result [facility] [address] [place] [address], * TH AN ENDOTRACHEAL(NO CHARGE) (03/23/2025 3:10 PM EDT) Narrative Paramjit Palencia CRNA - 03/23/2025 3:10 PM EDT Paramjit Palencia CRNA 03/23/2025 3:11 PM General Information and Staff Patient location during procedure: OR Performed by: Paramjit Palencia LANG INTERPRETER Authorized by: Jude Archuleta MD Intubation Airway not difficult Urgency: elective Final Airway Details Successful airway: ETT Cuffed: yes Successful intubation technique: direct laryngoscopy Facilitating devices/methods: intubating stylet and cricoid pressure Endotracheal tube insertion site: oral Blade: Shikha Blade size: #3 Cormack-Lehane Classification: grade IIa - partial view of glottis Placement verified by: chest auscultation, capnometry and palpation of cuff Measured from: lips Number of attempts at approach: 1 Ventilation between attempts: none Number of other approaches attempted: 0Final airway type: endotracheal airway Indications and Patient Condition Indications for airway management: anesthesia Spontaneous ventilation: present Sedation level: Yes Preoxygenated: yes Soft Tissue Damage: No Dentition Unchanged: Yes Patient position: neutral MILS maintained throughout Mask difficulty assessment: 2 - vent by mask + OA or adjuvant +/- NMBA Start Time: 03/23/2025 3:04 PMStop Time: 03/23/2025 3:04 PM us Jude Archuleta MD ANESTHESIA ORDERABLES Final Re sult * (ABNORMAL) CBC auto differential (03/23/2025 5:48 AM EDT) Only the most recent of2 resultswithin the time period is included. WBC 4.7(L) 4.8 - 10.8 K/mcL LAB HEMETOLOGY METHOD 03/23/2025 7:[address] [facility] RBC 3.80(L) 4.50 - 5.50 M/mcL LAB HEMETOLOGY METHOD 03/23/2025 7:[address] [facility] Hemoglobin 13.0(L) 13.5 - 17.5 g/dL LAB HEMETOLOGY METHOD 03/23/2025 7:[address] [facility] Hematocrit 37.8(L) 42.0 - 54.0 % LAB HEMETOLOGY METHOD 03/23/2025 7:[address] [facility] MCV 100.0(H) 79.0 - 98.0 FL LAB HEMETOLOGY METHOD 03/23/2025 7:[address] [facility] MCH 34.4(H) 27.0 - 32.0 pcg LAB HEMETOLOGY METHOD 03/23/2025 7:[address] [facility] MCHC 34.4 32.0 - 37.0 g/dL LAB HEMETOLOGY METHOD 03/23/2025 7:[address] [facility] RDW 12.9 11.0 - 15.0 % LAB HEMETOLOGY METHOD 03/23/2025 7:[address] [facility] Platelets 159 130 - 400 K/mcL LAB HEMETOLOGY METHOD 03/23/2025 7:[address] [facility] MPV 8.2 7.0 - 11.0 FL LAB HEMETOLOGY METHOD 03/23/2025 7:[address] [facility] NRBC 0.0 <1.0 % LAB HEMETOLOGY METHOD 03/23/2025 7:[address] [facility] NRBC Absolute 0.00 <0.10 K/mcL LAB HEMETOLOGY METHOD 03/23/2025 7:[address] [facility] Neutrophils Relative 52.4 % LAB HEMETOLOGY METHOD 03/23/2025 7:[address] [facility] Lymphocytes Relative 32.2 % LAB HEMETOLOGY METHOD 03/23/2025 7:[address] [facility] Monocytes Relative 11.4 % LAB HEMETOLOGY METHOD 03/23/2025 7:[address] [facility] Eosinophils Relative 3.2 % LAB HEMETOLOGY METHOD 03/23/2025 7:[address] [facility] Basophils Relative 0.6 % LAB HEMETOLOGY METHOD 03/23/2025 7:[address] [facility] Immature Granulocytes Relative 0.2 % LAB HEMETOLOGY METHOD 03/23/2025 7:06 AM EDT [facility] Neutrophils Absolute 2.44 1.50 - 7.00 K/mcL LAB HEMETOLOGY METHOD 03/23/2025 7:06 AM EDT [facility] Lymphocytes Absolute 1.50 1.00 - 5.00 K/mcL LAB HEMETOLOGY METHOD 03/23/2025 7:06 AM EDT [facility] Monocytes Absolute 0.53 0.20 - 1.00 K/mcL LAB HEMETOLOGY METHOD 03/23/2025 7:06 AM EDT [facility] Eosinophils Absolute 0.15 0.00 - 0.50 K/mcL LAB [facility]OLOGY [facility] Basophils Absolute 0.03 0.00 - 0.20 K/mcL LAB HEMETOLOGY METHOD 03/23/2025 7:06 AM EDT [facility] Immature Granulocytes Absolute 0.01 0.00 - 0.03 K/mcL LAB HEMETOLOGY METHOD 03/23/2025 7:06 AM EDT [facility] Blood Venous blood specimen / Unknown Venipuncture / Unknown 03/23/2025 5:48 AM EDT 03/23/2025 6:17 AM EDT Selena CHATMAN LAB BLOOD ORDERABLES Final Re sult [facility] [address] [place] [address], * Magnesium (03/23/2025 5:48 AM EDT) Magnesium 1.9 1.9 - 2.6 mg/dL LAB CHEMISTRY METHOD 03/23/2025 7:26 AM EDT [facility] Blood Venous blood specimen / Unknown Venipuncture / Unknown 03/23/2025 5:48 AM EDT 03/23/2025 6:17 AM EDT Selena CHATMAN LAB BLOOD ORDERABLES Final Re sult [facility] [address] [place] [address], [place] [phone] * (ABNORMAL) Basic metabolic panel (03/23/2025 5:48 AM EDT) Pathologist [facility] Sodium 141 133 - 145 mmol/L LAB CHEMISTRY METHOD 03/23/2025 7:[address] [facility] Potassium 4.2 3.5 - 5.5 mmol/L LAB CHEMISTRY METHOD 03/23/2025 7:[address] [facility] Chloride 108 96 - 110 mmol/L LAB CHEMISTRY METHOD 03/23/2025 7:[address] [facility] CO2 30 21 - 32 mmol/L LAB CHEMISTRY METHOD 03/23/2025 7:[address] [facility] Anion Gap 3 3 - 11 LAB CHEMISTRY METHOD 03/23/2025 7:[address] [facility] Glucose 103(H) 70 - 100 mg/dL LAB CHEMISTRY METHOD 03/23/2025 7:[address] [facility] BUN 6 5 - 25 mg/dL LAB CHEMISTRY METHOD 03/23/2025 7:[address] [facility] Creatinine 0.77 0.70 - 1.30 mg/dL LAB CHEMISTRY METHOD 03/23/2025 7:[address] [facility] eGFR 95 >=60 mL/min/1. 73m2 LAB CHEMISTRY METHOD 03/23/2025 7:[address] [facility] Comment:Calculation based on the Chronic Kidney Disease Epidemiology Collaboration (CKD-EPI) equation refit without adjustment for race. BUN/Creatinine Ratio 7.8 LAB CHEMISTRY METHOD 03/23/2025 7:26 AM EDT [facility] Calcium 8.9 8.5 - 10.5 mg/dL LAB CHEMISTRY METHOD 03/23/2025 7:26 AM EDT [facility] Blood Venous blood specimen / Unknown Venipuncture / Unknown 03/23/2025 5:48 AM EDT 03/23/2025 6:17 AM EDT Selena CHATMAN LAB BLOOD ORDERABLES Final Re sult [facility] [address] [place] [address], [place] [phone] * CT Abdomen Pelvis w Contrast (03/22/2025 4:56 PM EDT) Anatomical Region Laterality Modality Body Computed Tomogra phy 03/22/2025 5:26 PM EDT Addenda Addendum by Nisha Paovn MD on 03/22/2025 5:32 PM EDT ADDENDUM: This report was discussed with Jude Pérez MD on Mar 22, 2025 17:32:00 EDT. This document has been electronically signed by: Rosalva Brooks on 03/22/2025 17:32:59 Impressions 03/22/2025 5:26 PM EDT 1. The appendix is dilated and distended with fluid. This could be secondary to acute appendicitis or appendix mucocele. 2. There is a small infraumbilical hernia containing fat. There is mild edema of herniated fat and adjacent fat and there is a small amount of fluid within the hernia sac suggesting fat ischemia. 3. 1.5 cm nodular focus within the left lower lobe. This could represent an area of atelectasis or a true pulmonary nodule. Recommend 1 month follow-up CT. 4. There is cholelithiasis. This document has been electronically signed by: Nisha Hickey MD on 03/22/2025 17:26:10 Narrative 03/22/2025 5:26 PM EDT INDICATION: concern for incarcerated umbilical hernia CT abdomen and pelvis with contrast Comparison: None provided Findings: There is a 1.5 cm nodular focus within the inferior left lower lobe (series 3, image 37 ) Borderline size spleen. Small bilateral kidney cysts. Mild pancreatic volume loss. Remaining abdominal organs are unremarkable. There are numerous gallstones. No bowel dilatation or edema. There is a small infraumbilical hernia containing fat. There is mild edema of herniated fat and adjacent fat and there is a small amount of fluid within the hernia sac suggesting fat ischemia. The prostate gland is mildly enlarged. Pelvic contents are otherwise unremarkable. The appendix is abnormal. The distal aspect of the appendix is dilated and contains fluid with diameter measuring up to 2 cm. No adjacent edema. No acute fracture. Procedure Note Teodoro-Nisha Hickey MD - 03/22/2025 INDICATION: concern for incarcerated umbilical hernia CT abdomen and pelvis with contrast Comparison: None provided Findings: There is a 1.5 cm nodular focus within the inferior left lower lobe (series 3, image 37 ) Borderline size spleen. Small bilateral kidney cysts. Mild pancreatic volume loss. Remaining abdominal organs are unremarkable. There are numerous gallstones. No bowel dilatation or edema. There is a small infraumbilical hernia containing fat. There is mildedema of herniated fat and adjacent fat and there is a small amount of fluid within the hernia sac suggesting fat ischemia. The prostate gland is mildly enlarged. Pelvic contents are otherwise unremarkable. The appendix is abnormal. The distal aspect of theappendix is dilated and contains fluid with diameter measuring up to 2 cm. No adjacent edema. No acute fracture. IMPRESSION: 1. The appendix is dilated and distended with fluid. This could be secondary to acute appendicitis or appendix mucocele. 2. There is a small infraumbilical hernia containing fat. There is mild edema of herniated fat and adjacent fat and there is a small amount of fluid within the hernia sac suggesting fat ischemia. 3. 1.5 cm nodular focus within the left lower lobe. This could represent an area of atelectasis or a true pulmonary nodule. Recommend 1 month follow-up CT. 4. There is cholelithiasis. This document has been electronically signed by: Nisha Hickey MD on 03/22/2025 17:26:10 Jude Pérez MD [facility] CT PROCEDURES Edited Result - Final * Lactate, with reflex (03/22/2025 3:50 PM EDT) LACTIC ACID 1.9 0.4 - 2.0 mmol/L LAB CHEMISTRY METHOD 03/22/2025 4:30 PM EDT [facility] Blood Venous blood specimen / Unknown Venipuncture / Unknown 03/22/2025 3:50 PM EDT 03/22/2025 3:53 PM EDT us Jude Pérez MD LAB BLOOD ORDERABLES Final Resul t Performing Organization Address [facility]/ZIP Co de Phone Number [facility] [address] [place] [address], [place] [phone] * Blood Culture, Peripheral #2 (03/22/2025 3:50 PM EDT) Only the most recent of2 resultswithin the time period is included. Pathologist [facility] Culture, Blood No growth at 5 days 03/27/2025 5:01 PM EDT [facility] Blood Venous blood specimen / Unknown Venipuncture / Unknown 03/22/2025 3:50 PM EDT 03/22/2025 3:53 PM EDT us Jude Pérez MD LAB MICROBIOLOGY - GENERAL ORDER SEBAS Final Result Performing Organization Address City/[facility]/ZIP Co de Phone Number [facility] [address] [place] [address], [place] [phone] * Comprehensive metabolic panel (03/22/2025 3:50 PM EDT) Pathologist [facility] Sodium 140 133 - 145 mmol/L LAB CHEMISTRY METHOD 03/22/2025 4:29 PM EDT [facility] Potassium 4.0 3.5 - 5.5 mmol/L LAB CHEMISTRY METHOD 03/22/2025 4:29 PM EDT [facility] Chloride 107 96 - 110 mmol/L LAB CHEMISTRY METHOD 03/22/2025 4:[address] [facility] CO2 28 21 - 32 mmol/L LAB CHEMISTRY METHOD 03/22/2025 4:[address] [facility] Anion Gap 5 3 - 11 LAB CHEMISTRY METHOD 03/22/2025 4:[address] [facility] Glucose 95 70 - 100 mg/dL LAB CHEMISTRY METHOD 03/22/2025 4:[address] [facility] BUN 7 5 - 25 mg/dL LAB CHEMISTRY METHOD 03/22/2025 4:[address] [facility] Creatinine 0.90 0.70 - 1.30 mg/dL LAB CHEMISTRY METHOD 03/22/2025 4:[address] [facility] eGFR 91 >=60 mL/min/1. 73m2 LAB CHEMISTRY METHOD 03/22/2025 4:[address] [facility] Comment:Calculation based on the Chronic Kidney Disease Epidemiology Collaboration (CKD-EPI) equation refit without adjustment for race. BUN/Creatinine Ratio 7.8 LAB CHEMISTRY METHOD 03/22/2025 4:[address] [facility] Calcium 9.4 8.5 - 10.5 mg/dL LAB CHEMISTRY METHOD 03/22/2025 4:[address] [facility] AST (SGOT) 25 10 - 42 unit/L LAB CHEMISTRY METHOD 03/22/2025 4:[address] [facility] ALT (SGPT) 23 10 - 60 unit/L LAB CHEMISTRY METHOD 03/22/2025 4:[address] [facility] Alkaline Phosphatase 88 42 - 121 unit/L LAB CHEMISTRY METHOD 03/22/2025 4:[address] [facility] Total Protein 7.2 6.0 - 8.0 g/dL LAB CHEMISTRY METHOD 03/22/2025 4:[address] [facility] Albumin 3.3 3.2 - 5.0 g/dL LAB CHEMISTRY METHOD 03/22/2025 4:29 PM EDT [facility] Total Bilirubin 1.1 0.0 - 1.4 mg/dL LAB CHEMISTRY METHOD 03/22/2025 4:29 PM EDT [facility] Blood Venous blood specimen / Unknown Venipuncture / Unknown 03/22/2025 3:50 PM EDT 03/22/2025 3:53 PM EDT us Jude Pérez MD LAB BLOOD ORDERABLES Final Resul t [facility] [address] [place] [address], from Last 3 Months Insurance MEDICARE Care Teams Hand Sample Maker Relationship Specialty Start Date End Date Physician, Pcp Unknown PCP - General 03/22/25
--- OUTSIDE RECORDS SUMMARY | 2025-04-16 15:12 | XMS_ITS | Patient Health Record ---
[facility] Address [address] [place] [address] Care Team Providers Care Novelties Sales Representative Name Role Phone Mannie Jamil MD Primary Care Provider Unavaila Frederick Carrillo Unavailable [phone] Allergies No Known Allergies Reason For Referral No Information Medications Medication SIG (Take, Route, Frequency, Duration) Notes Start Date End Date Status Latanoprost 0.005 % 1 drop into affected eye in the evening Ophthalmic Once a day Not-Taking Amoxicillin 7days Not-Taki ng Doxycycline Hyclate 100 MG 1 capsule Ora lly Once a day; Duration: 7 days temp 03/09/2022 Not-Taking Viagra 100 MG 1 tablet as needed Orally prn; Duration: 30 day(s) Not-Taking Multivitamin Active zzzCompression Stockings 20-30mm Hg . . .; Duration: . Active Ammonium Lactate 12 % 1 application Externally Twice a day; Duration: 30 days Active Ketorolac Tromethamine 0.5 % Ophthalmic; Duration: 75 Days Active Glucosamine Chondr 1500 Complx as directed Orally Not-Takin g Immunizations Vaccine Route Administration Date Status Comme nts COVID-19 Pfizer BioNTech Vaccine Unknown 04/17/2021 Administered 1st 09/24/2020 2nd 10/15/2020 Social History Tobacco Use: Social History Observation Description Date Details (start date - stop date) Never Smoker NA - NA Tobacco Use/Smoking Question Answer Notes Are you a: nonsmoker Additional Findings: Tobacco Non-User Current no n-smoker Alcohol Screen Question Answer Notes Did you have a drink contain ing alcohol in the past year? Yes How often did you have a dri nk containing alcohol in the past year? 4 or more times a week (4 points) Points 4 Interpretation Positive Tobacco use other than smoking: Question Answer Notes Are you an other tobacco user? No Problems Problem Type SNOMED Code ICD Code Onset Dates Problem Status W/U Status Risk Notes Problem Bilateral atherosclerosis of arteries of lower limbs (disorder) (51964649381170245 ) Atherosclerosis of [place] artery of both lower extremities, with unspecified presence of clinical manifestation (I70.203) Active confirmed Plan Of Treatment Pending Test Test Name Order Date X ray : Foot, left 3V 03/04/2012 14922-HQQMWCE NAIL, 6 OR MORE 11/14/2021 03201-EHDAIQO NAIL, 6 OR MORE 01/27/2022 91243-LTEGRGH NAIL, 6 OR MORE 05/19/2022 93112-JMRRWKU NAIL, 6 OR MORE 08/18/2022 66588-CKEBZHN NAIL, 6 OR MORE 11/17/2022 86457-COYVBKX NAIL, 6 OR MORE 01/26/2023 32911-DWXPQTH NAIL, 6 OR MORE 04/20/2023 01492-ZHKVKUC NAIL, 6 OR MORE 06/28/2023 03464-FZNVXEQ NAIL, 1-5 10/19/2014 71923-XWYG SKIN LESIONS, OVER 4 11/15/19 22 20367-WMTK SKIN LESIONS, OVER 4 05/19/20 22 87362-ASQT SKIN LESIONS, OVER 4 01/28/20 22 58925-HRIE SKIN LESIONS, OVER 4 04/20/20 23 98000-LYNP SKIN LESIONS, OVER 4 01/27/20 23 17812-PDQJ SKIN LESIONS, OVER 4 11/18/19 23 78781-DTCE SKIN LESIONS, OVER 4 08/18/19 23 90890-DZAU SKIN LESIONS, OVER 4 06/28/20 23 51052- Removal of Foreign Body, Subcut 0 03/09/2022 Insurance Providers Payer Name Payer Address Payer Phone Subscriber Number Group Number Insured Name Patient Relationship to Insured Coverage Start Date Coverage End Date [employer] [address] [place] [address] [id number] Valentin Mariee Self - patient is the insured for Life [address] [place] [id number] Valentin Mariee Self - patient is the insured Medical (General) History Medical History History ICD Code Arthritis back, hip, knee pain psoriasis sciatica measles mumps Chicken pox Surgical History Surgery Date(Month/Year) herniated disk repair 1990 Tooth extraction 05/15/22 cataract bilateral 06/07, 06/14/23
== END 2025-04-16 14:28 | disposition home or self-care (01) ==
LOC: HO.HMCHD 13:36
PROVIDERS: PCP Internal Medicine; Visit Provider Physician Assistant
DX: G11.9 Hereditary ataxia, unspecified (principal); R42 Dizziness and giddiness; R00.0 Tachycardia, unspecified; E78.00 Pure hypercholesterolemia, unspecified; F10.10 Alcohol abuse, uncomplicated; E80.6 Other disorders of bilirubin metabolism

== ENCOUNTER → 2025-04-16 13:35 | Outpatient (BNVA) | payer MEDICARE, OTHER, SELFPAY | PROVIDERS: PCP Internal Medicine; Visit Provider Physician Assistant | DX: G11.9 Hereditary ataxia, unspecified (principal); R42 Dizziness and giddiness; R00.0 Tachycardia, unspecified; E78.00 Pure hypercholesterolemia, unspecified; E80.6 Other disorders of bilirubin metabolism; F10.10 Alcohol abuse, uncomplicated; M10.9 Gout, unspecified; G47.00 Insomnia, unspecified | CPT/HCPCS: 99212 ==

== ENCOUNTER → 2025-05-04 11:26 | Outpatient (BNV) | payer MEDICARE, OTHER, SELFPAY | PROVIDERS: PCP General Practice; Visit Provider Radiology Diagnostic Radiology | DX: G31.9 Degenerative disease of nervous system, unspecified (principal); G93.89 Other specified disorders of brain | CPT/HCPCS: 70551 ==

== ENCOUNTER 2025-05-04 11:27 | Outpatient (REF) | payer MEDICARE, OTHER, SELFPAY ==
--- OUTSIDE RECORDS SUMMARY | 2023-11-11 11:00 | XMS_ITS ---
Author Organization [facility] Address [address] [place] [address] Care Team Providers Care Industrial Education Teacher Name Role Phone Mannie Jamil MD Primary Care Provider Frederick Durham Unavailable [phone] Encounters Encounter Location Date Provider Diagnosis [facility] [address] [place] [address] [address] [place] [address] 11/11/2023 Frederick Dwyer Plan Of Treatment No Information Progress Notes * JAYLENEValentin LEMUS ADOB: [birth year] (74 yo M)Acc No.[id number]:11/11/2023 Progress Note Patient: Valentin PEDROZA Provider: Christina Dwyer DPM :1950 A ge:72 Y S ex:Male Date:11/11/2023 Address:[address] [place] [address] [address] [place] Pcp:Mannie Jamil MD Subjective: * Chief Complaints: * * Medical History: Objective: * Vitals: Assessment: Plan: * Treatment: * Images: * The named appointment provid er may or may not be the originator of this progress note, and it is not deemed complete until electronically signed by the appointment provider. Sign off status: Pending * Provider: Christina Dwyer DPM Date: 0 11/11/2023 Generated for Monalisai ng/Fasholag/eTransmitting on: 1 02:13 PM EDT
--- OUTSIDE RECORDS SUMMARY | 2023-12-27 10:00 | XMS_ITS ---
Author Organization [facility] Address [address] [place] [address] Care Team Providers Care Leasing Property Manager Name Role Phone Mannie Jamil MD Primary Care Provider Frederick Durham Unavailable [phone] Encounters Encounter Location Date Provider Diagnosis [facility] [address] [facility] [address] [place] [address] 12/27/2023 Frederick Dwyer Plan Of Treatment No Information Progress Notes * JAYLENEValentin LEMUS ADOB: [birth year] (74 yo M)Acc No.[id number]:12/27/2023 Progress Note Patient: Valentin PEDROZA Provider: Christina Dwyer DPM :1950 A ge:73 Y S ex:Male Date:12/27/2023 Address:[address] [place] [address] [address], [place] Pcp:Mannie Jamil MD Subjective: * Chief Complaints: * * Medical History: Objective: * Vitals: Assessment: Plan: * Treatment: * Images: * The named appointment provid er may or may not be the originator of this progress note, and it is not deemed complete until electronically signed by the appointment provider. Sign off status: Pending * Provider: Christina Dwyer DPM Date: 0 12/27/2023 Generated for Yamile ng/Fasholag/eTransmitting on: 1 02:13 PM EDT
--- OUTSIDE RECORDS SUMMARY | 2024-05-26 04:40 | XMS_ITS ---
Author Organization [facility] Address [address] [place] [address] Care Team Providers Care Oyster Cultivator Name Role Phone Svitlana Mckenzie Primary Care Provider Chai Rothman [phone] REASON FOR VISIT screening,hx polyps Problems Problem Type SNOMED Code ICD Code Onset Dates Problem Status W/U Status Risk Notes Problem Diverticular disease of colon (036165561) Diverticulosis of large intestine without perforation or abscess without bleeding (K57.30) Active confirmed Encounters Encounter Location Date Provider Diagnosis [facility] Outpatient [address] [place], [place] [id number] 05/26/2024 Chai Owen Colon cancer scree martinez Z12.11 ; Colon polyps K63.5 ; Diverticulosis of large intestine without perforation or abscess without bleeding K57.30 and Other hemorrhoids K64.8 Assessments Encounter Date Diagnosis (ICD Code) Assessment Notes Treatment Notes Treatment Clinical Notes Section Notes 05/26/2024 Colon cancer screening (ICD-10 - Z12.11) 05/26/2024 Colon polyps (ICD-10 - K63.5) 05/26/2024 Diverticulosis of large intestine without perforation or abscess without bleeding (ICD-10 - K57.30) 05/26/2024 Other hemorrhoids (ICD-10 - K64.8) Plan Of Treatment No Information Progress Notes * ANTONIA COHN ADOB: [birth year] (74 yo M)Acc No.[id number]:05/26/2024 COLON WITH MAC Patient: ANTONIA PEDROZA Provider: Mp Owen MD :1950 A ge:73 Y S ex:Male Date:05/26/2024 Address:[address] [place], [place] [address] Pcp:Svitlana Mckenzie Subjective: * Chief Complaints: * 1 . Screening,hx polyps. * Medical History: Objective: * Vitals: Assessment: * Assessment: 1. C olon cancer screening - Z12.11 (Primary) 2 . C olon polyps - K63.5? 3. D iverticulosis of large intestine without perforation or abscess without bleeding - K57.30 4 . O ther hemorrhoids - K64.8 Plan: * Treatment: * Procedure Codes: 4 5385 LESION REMOVAL COLONOSCOPY, Modifiers: 33 * * The named appointment provid er may or may not be the originator of this progress note, and it is not deemed complete until electronically signed by the appointment provider. Sign off status: Pending * Provider: Mp Owen MD Date: 07/26/2023 Generated for Yamile traore/Manda/Traysmitting on: 02:13 PM EDT
--- OUTSIDE RECORDS SUMMARY | 2025-05-03 14:43 | XMS_ITS | Encounter Summary ---
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 (CMS/HCC V24, CMS/HCC V28) Procedures PET CT Skull to Mid Thigh Initial Verónica Che MD [address] [place] [address] Phone: tel: fax: [facility] Referral ID Status Reason Start Date Expiration Date V isits Requested Visits Authorized [id number] Authorized 04/17/2025 04/17/2026 1 1 Reason for Visit * Imaging (Routine) - Authorized Specialty Diagnoses / Procedures Referred By Lena coleman Referred To Contact Radiology Diagnoses 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 (CMS/HCC V24, CMS/HCC V28) Procedures PET CT Skull to Mid Thigh Initial Verónica Che MD [address] [place] [address] Phone: tel: fax: [facility] Referral ID Status Reason Start Date Expiration Date V isits Requested Visits Authorized [id number] Authorized 04/17/2025 04/17/2026 1 1 Encounter Details Date Type Department Care Team (Latest Contact Info) Description 05/03/2025 2:43 PM EDT Hospital Encounter [facility] PET Scan [address] [place] [phone] 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 (CMS/HCC V24, CMS/HCC V28) Social History Tobacco Use Types Packs/Day Years Used Date Smoking Tobacco: Never Smokeless Tobacco: Never Interpersonal Safety Answer Date Record ed Physical Abuse Unrecognized value 03/22/2025 Verbal Abuse Unrecognized value 03/22/2025 Sex and Gender Information Value Date Recorded Sex Assigned at Not on file Legal Sex Male 2:42 PM EDT Gender Identity Not on file Sexual Orientation Not on file documented as of this encounter Plan of Treatment Upcoming Encounters Date Type Department Care Team (Late st Contact Info) Description 05/14/2025 1:30 PM EDT Office Visit [facility] Hematology Oncology [address] [place] [phone] Verónica Che MD [address] [place] [address] 07/16/2025 11:00 AM EST Office Visit General Surgery - [place] [address] [facility] [address] [place] [phone] Miguel Angel Arreola MD [address] [place] [phone] Pending Results Name Type Priority Associated Diagnoses Date /Time PET CT Skull to Mid Thigh Initial Imaging Routine 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 (CMS/HCC V24, CMS/HCC V28) 05/03/2025 4:45 PM EDT Scheduled Orders Name Type Priority Associated Diagnoses Orde r Schedule PET CT Skull to Mid Thigh Initial Imaging Routine 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 (CMS/HCC V24, CMS/HCC V28) Once for 1 Occurrences starting 05/03/2025 until 05/03/2025 documented as of this encounter Visit Diagnoses Diagnosis 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 (CMS/HCC V24, CMS/HCC V28) documented in this encounter Administered Medications Inactive Administered Medications - up to 3 most recent administrations Medication Order MAR Action Action Date Dose Rate Site F-18 FDG pet diag radio-isotope injection 10.1 millicurie 10.1 millicurie, intravenous, Once in imaging, Starting on Chantal 05/03/25 at 1515, For 1 dose Given 05/03/2025 3:15 PM EDT 10.7 millicuries Left Antecubital documented in this encounter Orders Medications Ordered That Yohannes ht Not Have Been Administered Count Last Ordered Date First Ordered Date F-18 FDG pet diag radio-isot ope injection 10.1 millicurie 1 05/03/2025 documented in this encounter Care Teams Water Purification Chemist Relationship Specialty Start Date End Date Katie Jacinto PA [address] [place] [address] PCP - General Physician Strap Cutting Machine Operator 04/17/25 documented as of this encounter
--- NOTE | ~2025-05-04 | MR_ITS ---
EXAMINATION: MR BRAIN WITHOUT CONTRAST CLINICAL INFORMATION: Hereditary ataxia, unspecified. Neuropathy in feet. COMPARISON: None available. TECHNIQUE: MRI of the brain was obtained using routine sequences without contrast. Examination performed on a 1.5 Melony Siemens high-field unit. FINDINGS: There is no diffusion restriction. There is no intracranial hemorrhage, acute infarction, mass effect, or edema. Ventricles, sulci, and cisterns are somewhat diffusely prominent, in keeping with age advanced cerebral and cerebellar volume loss. No hydrocephalus. No shift of midline. No abnormal hemosiderin deposition is identified. There are scattered punctate and minimally confluent foci of white matter T2 hyperintensity in the periventricular, subcortical, and hemispheric deep white matter. These foci are nonspecific but statistically most likely relate to mild to moderate small vessel ischemic changes. Midline structures appear normally formed. Diffuse thinning of the corpus callosum is present. The pituitary gland appears normal. Posterior fossa structures appear normal. Cerebellar tonsils are appropriately located. Major flow voids are preserved within the skull base. The globes and orbital contents demonstrate no abnormalities. There are bilateral lens replacements. Paranasal sinuses demonstrate mild mucosal thickening in both maxillary sinuses and throughout the ethmoid sinuses. No air-fluid levels present. Nasal septum is midline without spur. The mastoids and tympanic cavities are normally aerated. Extracranial soft tissues demonstrate no abnormalities. No suspicious bone marrow changes are evident. Atlantoaxial joint demonstrates mild to moderate degenerative changes. MR/MR head/brain wo con IMPRESSION: 1. No evidence of intracranial hemorrhage, acute infarction, mass effect, or edema. 2. There is age advanced cerebral and cerebellar atrophy with mild ventriculomegaly. 3. There are mild to moderate small vessel ischemic changes. Electronically signed by: Baljit Johnson MD 05/04/2025 12:25 PM EDT
--- OUTSIDE RECORDS SUMMARY | 2025-05-04 14:13 | XMS_ITS | Patient Health Record ---
Author Organization [facility] Address [address] [place] [address] Care Team Providers Care Rug Dyer Name Role Phone Svitlana Mckenzie Primary Care Provider Chai Rothman [phone] Allergies No Known Allergies Results Component Value Reference Range Notes Pathology Reviewed date:06/13/2024 11:39:55 PM Interpretation: Performing Lab:[facility], [address] [place] [phone] Notes/Report: Reason For Referral No Information Medications Medication SIG (Take, Route, Fr equency, Duration) Notes Start Date End Date Status Vitamin B-12 1000 MCG Oral; Duration: 90 Active Multivitamin Active Immunizations Vaccine Route [...] Problem Status W/U Status Risk Notes Problem Rectal bleeding (66153274) Rectal bleeding (K62.5) Active confirmed Problem Screening for malignant neoplasm of colon (140670237) Encounter for screening for malignant neoplasm of colon (Z12.11) Active confirmed Problem Diverticular disease of colon (465226341) Diverticulosis of large intestine without perforation or abscess without bleeding (K57.30) Active confirmed Problem History of adenomatous polyp of colon (457902964) Hx of adenomatous colonic polyps (Z86.010) Active confirmed Problem Pre-procedure evaluation check (445997849) Pre-procedural examination (Z01.818) Active confirmed Problem Fecal soiling (833956591) Fecal soiling (R15.1) Active confirmed Encounters Encounter Location Date Provider Diagnosis [facility] [address] [place], [place] [phone] 05/26/2024 Chai Owen Colon cancer screeni ng Z12.11 ; Colon polyps K63.5 ; Diverticulosis of large intestine without perforation or abscess without bleeding K57.30 and Other hemorrhoids K64.8 [facility] [address] [place] [address] 06/12/2024 Chai Owen Assessments Encounter Date Diagnosis [...] Insured Coverage Start Date Coverage End Date [facility] [address] [place] [address] [id number] ANTONIA COHN Self - patient is the insured Medical (General) History Medical History History ICD Code Denies [place],DM,CVA,Lung disease,renal dise ase Colonoscopy in 06/2005 with a 1.0 cm tubular adenoma with high grade dysplasia removed; negative colonoscopy in 07/2009. Surgical History Surgery Date(Month/Year) Cataracts 2022
--- OUTSIDE RECORDS SUMMARY | 2025-05-04 14:14 | XMS_ITS | Clinical Summary ---
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 ([facility] V24, [facility] V28) (Primary Dx) 04/05/2025 Telephone [facility] Hematology Oncology [address] [place] [phone] Physician, Pcp Unknown 04/04/2025 8:00 AM EDT Office Visit [address] [phone] Miguel Angel Arreola MD Mantle cell lymphoma of extranodal site excluding spleen and other solid organs ([facility] V24, [facility] V28) (Primary Dx); Low grade mucinous neoplasm of appendix; Ventral hernia with gangrene; History of laparoscopic appendectomy; History of ventral hernia repair; Central obesity; Diastasis recti; Loose stools 03/23/2025 2:55 PM EDT Anesthesia Event [address] [phone] Caleb Rosenberg MD Gomes, Sheldon B, MD 03/23/2025 2:00 PM EDT - 03/23/2025 4:00 PM EDT Surgery [address] [phone] Miguel Angel Arreola MD REPAIR HERNIA UMBILICAL 03/22/2025 2:50 PM EDT - 03/23/2025 10:48 PM EDT Emergency [facility] Urology Unit [address] [place] [phone] Jude Pérez MD Fiallo, Viriato M, MD [...] Sign Reading Time Taken Comments Blood Pressure 154/96 04/17/2025 1:59 PM EDT Pulse 121 04/17/2025 1:59 PM EDT Temperature 36.8 C (98.3 F) 04/17/2025 1:59 PM EDT Respiratory Rate 16 03/23/2025 7:03 PM EDT Oxygen Saturation 98% 04/17/2025 1:59 PM EDT Inhaled Oxygen Concentration - - Weight 103 kg (227 lb) 04/17/2025 1:59 PM EDT Height 185.4 cm (6' 1 ) 04/17/2025 1:59 PM EDT Body Mass Index 29.95 04/17/2025 1:59 PM EDT Plan of Treatment Upcoming Encounters Date Type Department Care Team (Late st Contact Info) Description 05/14/2025 1:30 PM EDT Office Visit [facility] Hematology Oncology [address] [place] [phone] Verónica Che MD [address] [place] [address] 07/16/2025 11:00 AM EST Office Visit General Surgery - [place] [address] [facility] [address] [place] [phone] Miguel Angel Arreola MD [address] [place] [phone] Health Maintenance Due Date Last Done Comments Hepatitis A Vaccines (1 of 2 - Risk 2-dose series) 12/03/1969 Pneumococcal Vaccine: 50+ Years (2 of 2 - PCV) 09/14/2019 09/14/2018 Depression Screening 07/19/2024 Cholesterol Screening (Lipid Panel) 03/22/2025 Hepatitis C Screening 03/22/2025 Medicare Annual Wellness Visit 03/22/2025 Social Influencers of Health Screening 03/22/2025 COVID-19 Vaccine (6 - Pfizer risk 2024-25 season) 2025 01/30/2025, 05/02/2022, 05/06/2021, Additional history exists Hepatitis B Vaccines (3 of 3 - 19+ 3-dose series) 08/11/2025 04/09/2025, 02/08/2025 Falls Risk Assessment 03/23/2026 03/23/2025 DTaP,Tdap,and Td Vaccines (2 - Td or Tdap) 05/19/2026 05/19/2016 RSV Immunization Adult Patients (1 - 1-dose 75+ series) 12/03/2027 Colorectal Cancer Screening: Colonoscopy 05/26/2034 05/26/2024 Zoster Vaccines Completed 06/25/2020, 03/20, 05/21/2016 Influenza Vaccine Completed 04/09/2025, , 04/18/2024, Additional history exists HIB Vaccines Aged Out No longer eligi [...] Procedure Name Priority Date/Time Associated Diagnosis Comments CBC WITH AUTO DIFFERENTIAL Routine 04/17/2025 2:40 PM EDT 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 [facility] Signature WBC 6.1 4.8 - 10.8 K/mcL LAB HEMETOLOGY METHOD 04/17/2025 4:48 PM EDT [facility] RBC 4.30(L) 4.50 - 5.50 M/mcL LAB HEMETOLOGY METHOD 04/17/2025 4:48 PM EDT [facility] Hemoglobin 14.7 13.5 - 17.5 g/dL LAB HEMETOLOGY METHOD 04/17/2025 4:48 PM EDT [facility] Hematocrit 43.0 42.0 - 54.0 % LAB HEMETOLOGY METHOD 04/17/2025 4:48 PM EDT [facility] MCV 100.0(H) 79.0 - 98.0 FL LAB HEMETOLOGY METHOD 04/17/2025 4:48 PM EDT [facility] MCH 34.2(H) 27.0 - 32.0 pcg LAB HEMETOLOGY METHOD 04/17[facility] MCHC 34.2 32.0 - 37.0 g/dL LAB HEMETOLOGY METHOD 04/17/2025 [facility] RDW 12.6 11.0 - 15.0 % LAB HEMETOLOGY METHOD 04/17/2025 4:[facility] Platelets 171 130 - 400 K/mcL LAB HEMETOLOGY METHOD 04/17/2025 4:[facility] MPV 8.8 7.0 - 11.0 FL LAB HEMETOLOGY METHOD 04/17/2025 4:48 PM EDT [facility] NRBC 0.0 <1.0 % LAB HEMETOLOGY METHOD 04/17/2025 4:48 PM EDT [facility] NRBC Absolute 0.00 <0.10 K/mcL LAB HEMETOLOGY METHOD 04/17/2025 [facility] Neutrophils Relative 70.9 % LAB HEMETOLOGY METHOD 04/17/2025 4[facility] Lymphocytes Relative 19.4 % LAB HEMETOLOGY METHOD 04/17/2025 4:48 PM EDT [facility] Monocytes Relative 7.8 % LAB HEMETOLOGY METHOD 04/17/2025 4:48 PM EDT [facility] Eosinophils Relative 0.7 % LAB HEMETOLOGY METHOD 04/17/2025 4:48 PM EDT [facility] Basophils Relative 0.7 % LAB HEMETOLOGY METHOD 04/17/2025 4:48 PM EDT [facility] Immature Granulocytes Relative 0.5 % LAB HEMETOLOGY METHOD 04/17/2025 4:48 PM EDT [facility] Neutrophils Absolute 4.35 1.50 - 7.00 K/mcL LAB HEMETOLOGY METHOD 04/17/2025 4:48 PM EDT [facility] Lymphocytes Absolute 1.19 1.00 - 5.00 K/mcL LAB HEMETOLOGY METHOD 04/17/2025 4:48 PM EDT [facility] Monocytes Absolute 0.48 0.20 - 1.00 K/mcL LAB HEMETOLOGY METHOD 04/17/2025 4:48 PM EDT [facility] Eosinophils Absolute 0.04 0.00 - 0.50 K/mcL LAB HEMETOLOGY METHOD 04/17[facility]2025 [facility] Basophils Absolute 0.04 0.00 - 0.20 K/mcL LAB HEMETOLOGY METHOD 04/17/2025 4:48 PM EDT [facility] Immature Granulocytes Absolute 0.03 0.00 - 0.03 K/mcL LAB HEMETOLOGY METHOD 04/17/2025 4:48 PM EDT [facility] Blood Venous blood specimen / Unknown Venipuncture / Unknown 04/17/2025 2:40 PM EDT 04/17/2025 4:38 PM EDT us Verónica Che MD LAB BLOOD ORDERABLES Final R esult [facility] [address] [place] [address], * ECG-Annotated (03/27/2025) us Provider Onbase ECG ORDERABLES Final Result * Tissue exam [...] The vast majority of lymphocytes are small, [id number] B cells that show diffuse expression of [...] Meron Harding (Hematopathology). 5 3:49 PM EDT [facility] Comment The appendix is [...] consensus conference 03/27/25. 5 3:49 PM EDT [facility] Gross Description A. Large [...] one piece each). KR 3:49 PM EDT [facility] Disclaimer NOTE: The immunohistochemical tests and in situ hybridization tests were developed and their performance characteristics were determined by [facility]. They have not been [...] fixed and paraffin embedded. 3:49 PM EDT [facility] Tissue Appendix structure / Unknown 03/23/2025 3:53 PM EDT 03/26/2025 5:19 AM EDT Miguel Angel Arreola MD LAB PATHOLOGY ORDERABLES Final Result [facility] [address] [place] [address], * TH AN ENDOTRACHEAL(NO CHARGE) (03/23/2025 3:10 PM EDT) Narrative Paramjit Palencia CRNA - 03/23/2025 3:10 PM EDT Paramjit Palencia CRNA 03/23/2025 3:11 PM General Information and Staff Patient location during procedure: OR Performed by: Paramjit Palencia CRNA Authorized by: Jude Archuleta MD Intubation Airway [...] 03/23/2025 3:04 PMStop Time: 03/23/2025 3:04 PM Jude Archuleta MD ANESTHESIA ORDERABLES Final Re sult * Magnesium (03/23/2025 5:48 AM EDT) Pathologist [facility] Magnesium 1.9 1.9 - 2.6 mg/dL LAB CHEMISTRY METHOD 03/23/2025 7:26 AM EDT [facility] Blood Venous blood specimen / Unknown Venipuncture / Unknown 03/23/2025 5:48 AM EDT 03/23/2025 6:17 AM EDT Selena CHATMAN LAB BLOOD ORDERABLES Final Re sult [facility] [address] [place] [address], [place] [phone] * (ABNORMAL) Basic metabolic panel (03/23/2025 5:48 AM EDT) Pathologist [facility] Sodium 141 133 - 145 mmol/L LAB CHEMISTRY METHOD 03/23/2025 7:26 AM EDT [facility] Potassium 4.2 3.5 - 5.5 mmol/L LAB CHEMISTRY METHOD 03/23/2025 7:26 AM [facility] Chloride 108 96 - 110 mmol/L LAB CHEMISTRY METHOD 03/23/2025 7:26 AM T [facility] CO2 30 21 - 32 mmol/L LAB CHEMISTRY METHOD 03/23/2025 7:26 AM T [facility] Anion Gap 3 3 - 11 LAB CHEMISTRY METHOD 03/23/2025 7:26 AM EDT [facility] Glucose 103(H) 70 - 100 mg/dL LAB CHEMISTRY METHOD 03/23/2025 7:26 AM EDT [facility] BUN 6 5 - 25 mg/dL LAB CHEMISTRY METHOD 03/23/2025 7:26 AM EDT [facility] Creatinine 0.77 0.70 - 1.30 mg/dL LAB CHEMISTRY METHOD 03/23/2025 7:26 AM EDT [facility] eGFR 95 >=60 mL/min/1. 73m2 LAB CHEMISTRY METHOD 03/23/2025 7:26 AM EDT [facility] Comment:Calculation based on the Chronic Kidney Disease Epidemiology Collaboration (CKD-EPI) equation refit without adjustment for race. BUN/Creatinine Ratio 7.8 LAB CHEMISTRY METHOD 03/23/2025 7:26 AM [facility] Calcium 8.9 8.5 - 10.5 mg/dL LAB CHEMISTRY METHOD 03/23/2025 7:26 AM EDT [facility] Blood Venous blood specimen / Unknown Venipuncture / Unknown 03/23/2025 5:48 AM EDT 03/23/2025 6:17 AM EDT Selena CHATMAN LAB BLOOD ORDERABLES Final Re sult [facility] [address] [place] [address], * CT Abdomen Pelvis w Contrast (03/22/2025 4:56 PM EDT) Anatomical Region Laterality Modality Body Computed Tomogra phy 03/22/2025 5:26 PM EDT Addenda Addendum by Nisha Pavon MD on 03/22/2025 5:32 PM EDT ADDENDUM: [...] MD on 03/22/2025 17:26:10 Jude Pérez MD IMG CT PROCEDURES Edited Result - Final * Lactate, with reflex (03/22/2025 3:50 PM EDT) LACTIC ACID 1.9 0.4 - 2.0 mmol/L LAB CHEMISTRY METHOD 03/22/2025 4:30 PM EDT [facility] Blood Venous blood specimen / Unknown Venipuncture / Unknown 03/22/2025 3:50 PM EDT 03/22/2025 3:53 PM EDT Jude Pérez MD LAB BLOOD ORDERABLES Final Resul t [facility] [address] [place] [address], [place] [phone] * Blood Culture, Peripheral #2 (03/22/2025 3:50 PM EDT) Only the most recent of2 resultswithin the time period is included. Culture, Blood No growth at 5 days 03/27/2025 5:01 PM EDT [facility] Blood Venous blood specimen / Unknown Venipuncture / Unknown 03/22/2025 3:50 PM EDT 03/22/2025 3:53 PM EDT us Jude Pérez MD LAB MICROBIOLOGY - GENERAL ORDER SEBAS Final Result [facility] [address] [place] [address], [place] [phone] * Comprehensive metabolic panel (03/22/2025 3:50 PM EDT) Sodium 140 133 - 145 mmol/L LAB CHEMISTRY METHOD 03/22/2025 4:29 PM EDT [facility] Potassium 4.0 3.5 - 5.5 mmol/L LAB CHEMISTRY METHOD 03/22/2025 4:29 PM [facility] Chloride 107 96 - 110 mmol/L LAB CHEMISTRY METHOD 03/22/2025 4:29 PM [facility] CO2 28 21 - 32 mmol/L LAB CHEMISTRY METHOD 03/22/2025 4:29 PM [facility] Anion Gap 5 3 - 11 LAB CHEMISTRY METHOD 03/22/2025 4:29 PM [facility] Glucose 95 70 - 100 mg/dL LAB CHEMISTRY METHOD 03/22/2025 4:29 PM [facility] BUN 7 5 - 25 mg/dL LAB CHEMISTRY METHOD 03/22/2025 4:29 PM [facility] Creatinine 0.90 0.70 - 1.30 mg/dL LAB CHEMISTRY METHOD 03/22/2025 4:29 PM [facility] eGFR 91 >=60 mL/min/1. 73m2 LAB CHEMISTRY METHOD 03/22/2025 4:29 PM [facility] Comment:Calculation based on the Chronic Kidney Disease Epidemiology Collaboration (CKD-EPI) equation refit without adjustment for race. BUN/Creatinine Ratio 7.8 LAB CHEMISTRY METHOD 03/22/2025 4:29 PM [facility] Calcium 9.4 8.5 - 10.5 mg/dL LAB CHEMISTRY METHOD 03/22/2025 4:29 PM EDT [facility] AST (SGOT) 25 10 - 42 unit/L LAB CHEMISTRY METHOD 03/22/2025 4:29 PM EDT [facility] ALT (SGPT) 23 10 - 60 unit/L LAB CHEMISTRY METHOD 03/22/2025 4:29 PM EDT [facility] Alkaline Phosphatase 88 42 - 121 unit/L LAB CHEMISTRY METHOD 03/22/2025 4:29 PM EDT [facility] Total Protein 7.2 6.0 - 8.0 g/dL LAB CHEMISTRY METHOD 03/22/2025 4:29 PM EDT [facility] Albumin 3.3 3.2 - 5.0 g/dL LAB CHEMISTRY METHOD 03/22/2025 4:29 PM EDT [facility] Total Bilirubin 1.1 0.0 - 1.4 mg/dL LAB CHEMISTRY METHOD 03/22/2025 4:29 PM EDT [facility] Blood Venous blood specimen / Unknown Venipuncture / Unknown 03/22/2025 3:50 PM EDT 03/22/2025 3:53 PM EDT us Jude Pérez MD LAB BLOOD ORDERABLES Final Resul t [facility] [address] [place] [address], from Last 3 Months Insurance MEDICARE [facility] Care Teams Industrial Garage Servicer Relationship Specialty Start Date End Date Katie Jacinto PA [address] [place] [address] PCP - General Physician Glass Block Installer 04/17/25
--- OUTSIDE RECORDS SUMMARY | 2025-05-04 14:14 | XMS_ITS | Patient Health Record ---
[facility] Address [address] [place] [address] Care Team Providers Care Construction Worker Name Role Phone Mannie Jamil MD Primary Care Provider Unavaila Frederick Carrillo Unavailable [phone] Allergies No Known Allergies Reason For Referral [...] atherosclerosis of arteries of lower limbs (disorder) ([id number] ) Atherosclerosis of [place] artery of both lower extremities, with unspecified presence of clinical manifestation (I70.203) Active confirmed Plan Of Treatment Pending Test Test Name Order Date X ray : Foot, left 3V 03/04/2012 [id number] NAIL, 6 OR MORE 11/14/2021 [id number] NAIL, 6 OR MORE 01/27/2022 [id number] NAIL, 6 OR MORE 05/19/2022 [id number] NAIL, 6 OR MORE 08/18/2022 [id number]-[id number] NAIL, 6 OR MORE 11/17/2022 [id number] NAIL, 6 OR MORE 01/26/2023 [id number] NAIL, 6 OR MORE 04/20/2023 [id number] NAIL, 6 OR MORE 06/28/2023 [id number] NAIL, 1-5 10/19/2014 39997-TPFL SKIN LESIONS, OVER 4 11/15/19 22 05039-KDNS SKIN LESIONS, OVER 4 05/19/20 22 81052-UWGS SKIN LESIONS, OVER 4 01/28/20 22 04226-MJQW SKIN LESIONS, OVER 4 04/20/20 23 22263-WVIR SKIN LESIONS, OVER 4 01/27/20 23 66227-NWJW SKIN LESIONS, OVER 4 11/18/19 23 42698-MACS SKIN LESIONS, OVER 4 08/18/19 23 56345-RGWR SKIN LESIONS, OVER 4 06/28/20 23 50767- Removal of Foreign Body, Subcut 0 03/09/2022 Insurance Providers Payer Name Payer Address Payer Phone Subscriber Number Group Number Insured Name Patient Relationship to Insured Coverage Start Date Coverage End Date Medicare [employer] [address] [place] [address] [id number] Valentin Mariee Self - patient is the insured for Life [address] [place] [phone] [id number] Valentin Mariee Self - patient is the insured Medical (General) History Medical History History ICD Code Arthritis back, hip, knee pain psoriasis sciatica measles mumps Chicken pox Surgical History Surgery Date(Month/Year) herniated disk repair 1990 Tooth extraction 05/15/22 cataract bilateral 06/07, 06/14/23
== END 2025-05-04 11:28 | disposition home or self-care (01) ==
LOC: HO.MRI 11:27
PROVIDERS: PCP General Practice; Visit Provider Physician Assistant
DX: G11.9 Hereditary ataxia, unspecified (principal); F10.10 Alcohol abuse, uncomplicated; R00.0 Tachycardia, unspecified; R42 Dizziness and giddiness
CPT/HCPCS: 70551

== ENCOUNTER → 2025-05-15 14:13 | Outpatient (REF) | payer MEDICARE, OTHER, SELFPAY ==
--- OUTSIDE RECORDS SUMMARY | 2023-12-27 10:00 | XMS_ITS ---
Author Organization [facility] Address [address] [place] [address] Care Team Providers Care Shop Teacher Name Role Phone Mannie Jamil MD Primary Care Provider Frederick Durham Unavailable [phone] Encounters Encounter Location Date Provider Diagnosis [facility] [address] [facility] [address] [place] [address] 12/27/2023 Frederick Dwyer Plan Of Treatment No Information Progress Notes * JAYLENEValentin LEMUS ADOB: [birth year] (74 yo M)Acc No.[id number]:12/27/2023 Progress Note Patient: Valentin PEDROZA Provider: Christina Dwyer DPM :1950 A ge:73 Y S ex:Male Date:12/27/2023 Address:[address] [place] [address] [address], [place] Pcp:Mannie Jamil MD Subjective: * Chief Complaints: [...] Dwyer DPM Date: 0 12/27/2023 Generated for Monalisai ng/Faxing/eTransmitting on: 1 06:34 PM EDT
--- OUTSIDE RECORDS SUMMARY | 2024-05-26 04:40 | XMS_ITS ---
Author Organization [facility] Address [address] [place] [address] Care Team Providers Care Bushwalking Guide Name Role Phone Svitlana Mckenzie Primary Care Provider Chai Rothman [phone] REASON FOR VISIT screening,hx polyps Problems Problem Type SNOMED Code ICD Code Onset Dates Problem Status W/U Status Risk Notes Problem Diverticular disease of colon (032918544) Diverticulosis of large intestine without perforation or abscess without bleeding (K57.30) Active confirmed Encounters Encounter Location Date Provider Diagnosis [facility] Out[facility] [address] [place], [place] [phone] 05/26/2024 Chai Owen Colon cancer scree martinez [...] ANTONIA COHN ADOB: [birth year] (74 yo M)Acc No.[id number]:05/26/2024 COLON WITH MAC Patient: ANTONIA PEDROZA Provider: Mp Owen MD :1950 A ge:73 Y S ex:Male Date:05/26/2024 Address:[address] [place], [place] [id number] Pcp:Svitlana Mckenzie Subjective: * Chief Complaints: * [...] Date: 07/26/2023 Generated for Yamile traore/Manda/Traysmitting on: 06:34 PM EDT
--- OUTSIDE RECORDS SUMMARY | 2025-05-14 13:30 | XMS_ITS | Encounter Summary ---
Author Organization [facility] Address [address] [place] [address] Care Team Providers Care Animal Technician Name Role Phone Katie Jacinto Primary Care Provider [phone] Reason for Visit * Reason Comments Follow-up Encounter Details Date Type Department Care Team (Late st Contact Info) Description 05/14/2025 1:30 PM EDT Office Visit [facility] Hematology Oncology [address] [place] [phone] Verónica Che MD [address] [place] [address] Mantle cell lymphoma, unspecified body region (CMS/HCC V24, CMS/HCC V28) (Primary Dx) Social History Tobacco Use Types Packs/Day Years [...] on file documented as of this encounter Last Filed Vital Signs Vital Sign Reading Time Taken Comments Blood Pressure 169/98 05/14/2025 1:18 PM EDT Pulse 125 05/14/2025 1:18 PM EDT Temperature 35.9 C (96.7 F) 05/14/2025 1:18 PM EDT Respiratory Rate - - Oxygen Saturation 98% 05/14/2025 1:18 PM EDT Inhaled Oxygen Concentration - - Weight 104 kg (230 lb) 05/14/2025 1:18 PM EDT Height - - Body Mass Index 30.34 04/17/2025 1:59 PM EDT documented in this encounter Progress Notes * Verónica Che MD - 05/14/2025 1:30 PM EDT CHIEF COMPLAINT: Follow-up IDENTIFIER:Valentin Mariee is a 74 y.o. male. HPI: 74-year-old man, who relatively healthy but this year patient has multiple medical issuesincluding incarcerated hernia, for that reason patient saw you and had a CT scan that showed some dilated/? 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 Smoking Status Never BSA 2.28 m?? ECOG 0-1 APPEARANCE: Alert and oriented in no acute distress EYES: nonicteric sclera pink conjunctiva ORAL CAVITY: No mucositis significant NECK: Neck supple, no adenopathy, HEART: S1-S2 tachycardia LUNG: clear to auscultation bilaterally LYMPH NODES: No palpable superficial adenopathy ABDOMEN: Obese, tender, soft, nontender and no organomegaly appreciated EXTREMITIES: no severe edema erythema or tenderness LABS: PET scan; FINDINGS: HEAD AND NECK: Bilateral tonsillar activity with SUV max up to 6.1. No FDG avid cervical nodes. THORAX: No abnormal FDG activity. No FDG avid thoracic nodes. ABDOMEN/PELVIS: No FDG avid nodes in the abdomen or pelvis. Focal activity along the umbilicus as well as the anterior abdominal wall within the left mid abdomen consistent with recent postoperative changes with SUV max up to 3.4. Focal activity noted along the posterior right side of the prostate gland with associated hyperattenuation and calcification with SUV max up to 3.5, nonspecific. MUSCULOSKELETAL: No abnormal FDG activity. IMPRESSION: Bilateral tonsillar FDG activity is nonspecific and may be physiological. Consider direct visualization. No FDG avid lymphadenopathy within the chest, abdomen or pelvis. IMPRESSION: 1. Mantle cell lymphoma, unspecified body region (CMS/HCC V24, CMS/HCC V28) 74-year-old man, who incidentally diagnosed/found to have low-grade mantle cell lymphoma of appendix, patient had a PET CT scan that showed no evidence of any uptake otherwise complete blood count is unremarkable and patient has no B symptoms. I gave him reassurance about this low-grade lymphoma, I would do surveillance for next year, I will check labs prior to next visit in summer of next year Patient has some neurological issues and will be seeing a neurologist in next few weeks, would be interested in finding out etiology of his neurological issues PLAN: Orders Placed This Encounter Procedures CBC and differential Lactate dehydrogenase Beta 2 microglobulin, serum Labs prior to next visit in 6 months Verónica Che MD [1] Current Outpatient Medications: cyanocobalamin (VITAMIN B-12) 500 mcg tablet, Take 1 tablet (500 mcg total) by mouth 1 (one) time each day., Disp: , Rfl: folic acid (FOLVITE) 1 mg tablet, Take by mouth 1 (one) time each day., Disp: , Rfl: oxyCODONE (ROXICODONE) 5 mg immediate release tablet, Take 1 tablet (5 mg total) by mouth every 4 (four) hours if needed for severe pain. Max Daily Amount: 30 mg, Disp: 12 tablet, Rfl: 0 pantoprazole (PROTONIX) 20 mg EC tablet, Take 1 tablet (20 mg total) by mouth 1 (one) time each daybefore breakfast. Do not crush, chew, or split., Disp: , Rfl: traZODone (DESYREL) 100 mg tablet, Take 1 mg by mouth at bedtime., Disp: , Rfl: [2] No Known Allergies documented in this encounter Plan of Treatment Upcoming Encounters Date Type Department Care Team (Late st Contact Info) Description 07/16/2025 11:00 AM EST Office Visit General Surgery [facility] [address] [facility] [address] [place] [phone] Miguel Angel Arreola MD [address] [place] [phone] 12/17/2025 3:30 PM EDT Office Visit [facility] Hematology Oncology [address] [place] [phone] Verónica Che MD [address] [place] [address] Scheduled Orders Name Type Priority Associated Diagnoses Orde r Schedule CBC and differential Lab Routine Mantle cell lymphoma, unspecified body region ([facility] V24, CMS/[facility] V28) Expected: 11/12/2025, Expires: 05/14/2026 Lactate dehydrogenase Lab Routine Mantle cell lymphoma, unspecified body region ([facility] V24, CMS/[facility] V28) Expected: 10/17/2025, Expires: 05/14/2026 Beta 2 microglobulin, serum Lab Routine Mantle cell lymphoma, unspecified body region (CMS/[facility] V24, CMS/[facility] V28) Expected: 10/17/2025, Expires: 05/14/2026 documented as of this encounter Visit Diagnoses Diagnosis Mantle cell lymphoma, unspecified body region (CMS/[facility] V24, CMS/[facility] V28)- Primary documented in this encounter Care Teams Animal Technician Relationship Specialty Start Date End Date Katie Jacinto PA [address] [place] [phone] PCP - General Physician Patient Resource Specialist 04/17/25 documented as of this encounter
--- NOTE | 2025-05-15 14:16 | HM_ITS ---
Conclusion: 1. Patient was monitored for total period of 3 days 2. Baseline was normal sinus rhythm with average heart rate of 99 beats per minute 3. No significant pauses noted 4. Frequent sinus tachycardia noted with 37.8% of time heart rate about 100 beats per minute 5. No significant arrhythmias noted 6. No patient reported events MTDD
--- NOTE | 2025-05-15 14:16 | CA_ITS ---
Transthoracic Echocardiogram Patient (Last, First, Middle): Valentin Mariee A Gender: M Date of : 1950 Age: 74 Procedure Date: 05/15/2025 Procedure Type: Transthoracic Echocardiogram Location: OP Height: 187.96 cm Weight: 101.61 kg BSA: 2.28 m2 Heart Rate: bpm BP: 162 / 82 mmHg Hydraulic Press Tender: MILA Referring MD: Katie CHATMAN Symptoms: F10.10 - Alcohol abuse, uncomplicated Study Quality: Adequate w contrast ECG Rhythm: Sinus Conclusions: - The left ventricular systolic function is normal. The calculated ejection fraction is 66% by biplane method. - No obvious valvular pathology seen on this study. Findings Procedure Information Contrast agent, definity, is being given per protocol without apparent complications. Left Ventricle Normal left ventricular cavity size. The left ventricular systolic function is normal. The calculated ejection fraction is 66% by biplane method. There is no evidence of regional wall motion abnormalities. Evidence suggests grade I (mild) diastolic dysfunction. There is mild septal asymmetric hypertrophy. Right Ventricle Normal right ventricular cavity size and systolic function. Atria Both atria are normal in size. Aortic Valve There is a normal trileaflet aortic valve. There is no aortic valve stenosis. There is no aortic valve regurgitation. Mitral Valve The mitral valve appears normal. There is trace mitral valve regurgitation. There is no mitral valve stenosis. Pulmonic Valve The pulmonic valve is likely normal. Tricuspid Valve There is trace tricuspid valve regurgitation. There is no evidence of pulmonary hypertension. Great Vessels The asc aorta is normal in size. Venous The inferior vena cava is normal in size and collapses greater than 50% with inspiration. Pericardium/Pleural Prominent epicardial adipose tissue noted. There is no evidence of pericardial effusion. Prior Study Comparison No prior study available for comparison. Recommendations, Care & Conclusions No obvious valvular pathology seen on this study. Measurements 2D Linear Measurements IVSd: 1.17 0.6-0.9/0.6-1.0 cm LVIDd: 5.05 3.9-5.3/4.2-5.9 cm LVIDd Index: 2.21 2.4-3.2/2.2-3.1 cm/m2 LVIDs: 3.10 2.0-3.6 cm LVPWd: 0.98 0.7-1.1 cm LA Diam: 3.30 2.7-3.8/3.0-4.0 cm LAIDs Index: 1.45 1.5-2.3 cm/m2 LV Mass: 253.59 67-162/88-224 g LV Mass Index: 111.22 43-95/49-115 g/m2 LVOT Diam: 2.30 3.0+(-)1.3 cm 2D Systolic Function EF 4C: 66.40 >55% EF 2C: 67.10 >55% EF BiP: 66.30 >55% Mitral Valve MV Pk E: 0.60 MV PK A: 0.79 MV Decel Time: 196.00 E/A: 0.80 E'Lateral: 5.98 E'Medial: 5.44 E/E' Med: 11.10 E/E' Lat: 10.10 PHT: 57.00 MVA PHT: 3.86 Decel Aiken: 3.09 Aortic Valve AoV Pk Joe: 1.13 AoV Mn Joe: 0.83 AoV VTI: 0.22 AoV Pk Grad: 5.00 Aov Mn Grad: 3.00 LULU Cont.VTI: 3.96 LVOT LVOT Pk Joe: 1.10 LVOT Mn Joe: 0.81 LVOT VTI: 0.21 LVOT Pk Grad: 5.00 LVOT Mn Grad: 3.00 LVOT Diam: 2.30 LVOT Area: 4.15 Diastolic Function MV Pk E: 0.60 MV Pk A: 0.79 E/A: 0.80 E'Medial: 5.44 E/E' Med: 11.10 E' Laterial: 5.98 E/E' Lat: 10.10 Right Ventricle TAPSE (mm): 17.30 TVS' Joe: 12.60 Tricuspid Valve TR Pk Joe: 1.53 TR Pk Grad: 9.00 RA Press: 3.00 RVSP: 12.00 Great Vessels Aorta Sinus of Valsalva: 4.03 2.0-3.[address] Ridge: 3.50 1.7-3.4 cm Ao Asc: 3.50 2.1-3.4 cm Pulmonary Veins Pulm Vein S/D 1.40 Updated in Other Vendor System with Status of Final Fabian Akins MD electronically signed on 05/16/2025 11:27:50 AM with status of Final
--- OUTSIDE RECORDS SUMMARY | 2025-05-15 18:34 | XMS_ITS | Patient Health Record ---
[facility] Address [address] [facility] [place] [address] Care Team Providers Care Assisted Living Director Name Role Phone Mannie Jamil MD Primary Care Provider Unavaila Frederick Carrillo Unavailable [phone] Allergies No Known Allergies Reason For Referral [...] atherosclerosis of arteries of lower limbs (disorder) ([id number] ) Atherosclerosis of saxman artery of both lower extremities, with unspecified presence of clinical manifestation (I70.203) Active confirmed Plan Of Treatment Pending Test Test Name Order Date X ray : Foot, left 3V 03/04/2012 [id number] NAIL, 6 OR MORE 11/14/2021 [id number] NAIL, 6 OR MORE 01/27/2022 [id number] NAIL, 6 OR MORE 05/19/2022 [id number] NAIL, 6 OR MORE 08/18/2022 [id number] NAIL, 6 OR MORE 11/17/2022 [id number] NAIL, 6 OR MORE 01/26/2023 [id number] NAIL, 6 OR MORE 04/20/2023 [id number] NAIL, 6 OR MORE 06/28/2023 [id number] NAIL, 1-5 10/19/2014 [id number] SKIN LESIONS, OVER 4 11/15/19 22 [id number] SKIN LESIONS, OVER 4 05/19/20 22 [id number] SKIN LESIONS, OVER 4 01/28/20 22 [id number] SKIN LESIONS, OVER 4 04/20/20 23 [id number] SKIN LESIONS, OVER 4 01/27/20 23 [id number] SKIN LESIONS, OVER 4 11/18/19 23 [id number] SKIN LESIONS, OVER 4 08/18/19 23 [id number] SKIN LESIONS, OVER 4 06/28/20 23 79638- Removal of Foreign Body, Subcut 0 03/09/2022 Insurance Providers Payer Name Payer Address Payer Phone Subscriber Number Group Number Insured Name Patient Relationship to Insured Coverage Start Date Coverage End Date Medicare [employer] [address] [place] [address] [id number] Valentin Mariee Self - patient is the insured for Life [address] [place] [phone] [id number] Valentin Mariee Self - patient is the insured Medical (General) History Medical History History ICD Code Arthritis back, hip, knee pain psoriasis sciatica measles mumps Chicken pox Surgical History Surgery Date(Month/Year) herniated disk repair 1990 Tooth extraction 05/15/22 cataract bilateral 06/07, 06/14/23
--- OUTSIDE RECORDS SUMMARY | 2025-05-15 18:34 | XMS_ITS | Clinical Summary ---
Author Organization [facility] Address [address] [place] [address] Phone Care Team Providers Care Marble Carver Name Role Phone Katie Jacinto Primary Care Provider [phone] Allergies No known active allergies Medications pantoprazole [...] Encounters Date Type Department Care Team Description 05/14/2025 1:30 PM EDT Office Visit [facility] Hematology Oncology [address] [place] [address] Verónica Che MD Mantle cell lymphoma, unspecified body region ([facility] V24, [facility] V28) (Primary Dx) 05/03/2025 2:43 PM EDT - 05/03/2025 11:59 PM EDT Hospital Encounter [facility] PET Scan [address] [place] [phone] 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 ([facility] V24, [facility] V28) Discharge Disposition: Home or Self Care 04/17/2025 2:00 PM EDT Office Visit [facility] Hematology Oncology [address] [place] [phone] Verónica Che MD 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 ([facility] V24, [facility] V28) (Primary Dx) 04/05/2025 Telephone [facility] Hematology Oncology [address] [place] [phone] Physician, Pcp Unknown 04/04/2025 8:00 AM EDT Office Visit [address] [phone] Miguel Angel Arreola MD Mantle cell lymphoma of extranodal site excluding spleen and other solid organs ([facility] V24, [facility] V28) (Primary Dx); Low grade mucinous neoplasm of appendix; Ventral hernia with gangrene; History of laparoscopic appendectomy; History of ventral hernia repair; Central obesity; Diastasis recti; Loose stools 03/23/2025 2:55 PM EDT Anesthesia Event [address] [phone] Caleb Rosenberg MD Gomes, Sheldon B, MD 03/23/2025 2:00 PM EDT - 03/23/2025 4:00 PM EDT Surgery [address] [phone] Miguel Angel Arreola MD REPAIR HERNIA UMBILICAL 03/22/2025 2:50 PM EDT - 03/23/2025 10:48 PM EDT Emergency [facility] Urology Unit [address] [place] [phone] Jude Pérez MD Fiallo, Viriato M, MD [...] F) 05/14/2025 1:18 PM EDT Respiratory Rate 16 03/23/2025 7:03 PM EDT Oxygen Saturation 98% 05/14/2025 1:18 PM EDT Inhaled Oxygen Concentration - - Weight 104 kg (230 lb) 05/14/2025 1:18 PM EDT Height 185.4 cm (6' 1 ) 04/17/2025 1:59 PM EDT Body Mass Index 30.34 04/17/2025 1:59 PM EDT Plan of Treatment Upcoming Encounters Date Type Department Care Team (Late st Contact Info) Description 07/16/2025 11:00 AM EST Office Visit General Surgery [facility] [address] [facility] [address] [place] [address] Miguel Angel Arreola MD [address] [place] [phone] 12/17/2025 3:30 PM EDT Office Visit [facility] Hematology Oncology [address] [place] [address] Verónica Che MD [address] [place] [address] Health Maintenance Due Date Last Done Comments [...] Procedure Name Priority Date/Time Associated Diagnosis Comments PET CT SKULL TO MID THIGH INITIAL Routine 05/03/2025 4:45 PM EDT 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 ([facility] V24, [facility] V28) CBC WITH AUTO DIFFERENTIAL Routine 04/17/2025 2:40 PM EDT 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 (CMS/HCC V24, CMS/HCC V28) CBC AND DIFFERENTIAL Routine 04/17/2025 2:40 PM EDT 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 (CMS/HCC V24, CMS/HCC V28) ECG ANNOTATED 03/27/2025 TISSUE EXAM Routine 03/23/2025 3:53 PM EDT Incarcerated umbilical hernia TH AN ENDOTRACHEAL(NO CHARGE) Routine 03/23/2025 3:10 PM EDT ME LAPAROSCOPY SURGICAL APPENDECTOMY 03/23/2025 2:54 PM EDT [...] EDT from Last 3 Months Results * PET CT Skull to Mid Thigh Initial (05/03/2025 4:45 PM EDT) Anatomical Region Laterality Modality Body Radiographic Jacklyn ging 05/10/2025 2:25 PM EDT Impressions 05/10/2025 2:36 PM EDT Bilateral tonsillar FDG activity is nonspecific and may be physiological. Consider direct visualization. No FDG avid lymphadenopathy within the chest, abdomen or pelvis. Mild metabolic activity along the posterior right prostate gland associated hyperattenuation/calcification. Recommend correlation with JULIANNE as well as PSA. -------- FINAL REPORT -------- Dictated By: Blake Rodrigues Dictated Date: 05/10/2025 14:25 ET Assigned Physician: Blake Rodrigues Reviewed and Electronically Signed By: Blake Rodrigues Signed Date: 05/10/2025 14:36 ET Workstation ID: [id number] Transcribed By: Self Edit Transcribed Date: 05/10/2025 14:25 ET Narrative 05/10/2025 2:36 PM EDT INDICATION: Mantle cell lymphoma, initial treatment strategy Prior relevant studies: CT scan of the abdomen and pelvis from March 22, 2025 reviewed. Radiopharmaceutical: 10.7 mCi of F-18 FDG IV. Blood glucose: 110 mg/dl. PROCEDURE: Routine body FDG PET-CT imaging was performed from the skull base to the mid thighs and reconstructed in axial, coronal, and sagittal planes at the computer workstation with fused data from both the PET imaging study and attenuation correction CT. The CT portion of the examination was done strictly for attenuation correction and is not a true diagnostic CT examination. CTDI: 8.63 mGy FINDINGS: HEAD AND NECK: Bilateral tonsillar activity [...] 3.5, nonspecific. MUSCULOSKELETAL: No abnormal FDG activity. Procedure Note Blake Rodrigues MD - 05/10/2025 INDICATION: Mantle cell lymphoma, initial treatment strategy Prior relevant studies: CT scan of the abdomen and pelvis from 2024 reviewed. Radiopharmaceutical: 10.7 mCi of F-18 FDG IV. Blood glucose: 110 mg/dl. PROCEDURE: Routine body FDG PET-CT imaging was performed from the skullbase to the mid thighs and reconstructed in axial, coronal, and sagittalplanes at the computer workstation with fused data from both the PETimaging study and attenuation correction CT. The CT portion of theexamination was done strictly for attenuation correction and is not a truediagnostic CT examination. CTDI: 8.63 mGy FINDINGS: HEAD AND NECK: Bilateral tonsillar activity with SUV max up to 6.1. No FDG avid cervical nodes. THORAX: No abnormal FDG activity. No FDG avid thoracic nodes. ABDOMEN/PELVIS: No FDG avid nodes in the abdomen or pelvis. Focal activity along the umbilicus as well as the anterior abdominal wallwithin the left mid abdomen consistent with recent postoperative changeswith SUV max up to 3.4. Focal activity noted along the posterior right side of the prostate glandwith associated hyperattenuation and calcification with SUV max up to 3.5,nonspecific. MUSCULOSKELETAL: No abnormal FDG activity. IMPRESSION: Bilateral tonsillar FDG activity is nonspecific and may be physiological.Consider direct visualization. No FDG avid lymphadenopathy within the chest, abdomen or pelvis. Mild metabolic activity along the posterior right prostate glandassociated hyperattenuation/calcification. Recommend correlation with DREas well as PSA. -------- FINAL REPORT -------- Dictated By: Blake Rodrigues Dictated Date: 05/10/2025 14:25 ET Assigned Physician: Blake Rodrigues Reviewed and Electronically Signed By: Blake Rodrigues Signed Date: 05/10/2025 14:36 ET Workstation ID: [id number] Transcribed By: Self Edit Transcribed Date: 05/10/2025 14:25 ET us Verónica U Yane MD IMG NM PROCEDURES Final Resu lt * (ABNORMAL) CBC auto differential (04/17/2025 2:40 PM EDT) Only the most recent of3 resultswithin the time period is included. [facility] WBC 6.1 4.8 - 10.8 K/mcL LAB HEMETOLOGY METHOD 04/17/2025 4:48 PM EDT [facility] RBC 4.30(L) 4.50 - 5.50 M/mcL LAB HEMETOLOGY METHOD 04/17/2025 4:48 PM EDT [facility] Hemoglobin 14.7 13.5 - 17.5 g/dL LAB HEMETOLOGY METHOD 04/17/2025 4:48 PM EDT [facility] Hematocrit 43.0 42.0 - 54.0 % LAB HEMETOLOGY METHOD 04/17/2025 4:48 PM EDT [facility] MCV 100.0(H) 79.0 - 98.0 FL LAB HEMETOLOGY METHOD 04/17/2025 4:48 PM EDT [facility] MCH 34.2(H) 27.0 - 32.0 pcg LAB HEMETOLOGY METHOD 04/17/2025 4:48 PM EDT [facility] MCHC 34.2 32.0 - 37.0 g/dL LAB HEMETOLOGY METHOD 04/17/2025 4:48 PM EDT [facility] RDW 12.6 11.0 - 15.0 % LAB HEMETOLOGY METHOD 04/17/2025 4:48 PM EDT [facility] Platelets 171 130 - 400 K/mcL LAB HEMETOLOGY METHOD 04/17/2025 4:48 PM EDT [facility] MPV 8.8 7.0 - 11.0 FL LAB HEMETOLOGY METHOD 04/17/2025 4:48 PM EDT [facility] NRBC 0.0 <1.0 % LAB HEMETOLOGY METHOD 04/17/2025 4:48 PM EDT [facility] NRBC Absolute 0.00 <0.10 K/mcL [facility]ils Relative 70.9 % LAB HEMETOLOGY METHOD 04/17/2025 4:48 PM EDT [facility] Lymphocytes Relative 19.4 % LAB HEMETOLOGY METHOD 04/17/2025 4:48 PM EDT [facility] Monocytes Relative 7.8 % LAB HEMETOLOGY METHOD 04/17/2025 4:48 PM EDT [facility] Eosinophils Relative 0.7 % LAB [facility]OLOGY [facility]25 [facility] Basophils Relative 0.7 % [facility]EM[facility]OLOGY [facility] 04/17[facility]2025 4:[facility] Immature Granulocytes Relative 0.5 % LAB HEMETOLOGY METHOD 04/17/2025 4:48 PM [facility] Neutrophils Absolute 4.35 1.50 - 7.00 K/mcL LAB HEMETOLOGY METHOD 04/17[facility]2025 4[facility] Lymphocytes Absolute 1.19 1.00 - 5.00 K/mcL LAB HEMETOLOGY METHOD 04/17/2025 4:48 [facility] Monocytes Absolute 0.48 0.20 - 1.00 K/mcL LAB HEMETOLOGY METHOD 04/17/2025 4:48 [facility] Eosinophils Absolute 0.04 0.00 - 0.50 K/mcL LAB HEMETOLOGY METHOD 04/17/2025 4:[facility] Basophils Absolute 0.04 0.00 - 0.20 K/mcL LAB HEMETOLOGY METHOD 04/17/2025 4:48 PM EDT [facility] Immature Granulocytes Absolute 0.03 0.00 - 0.03 K/mcL LAB HEMETOLOGY METHOD 04/17/2025 4:48 PM EDT [facility] Blood Venous blood specimen / Unknown Venipuncture / Unknown 04/17/2025 2:40 PM EDT 04/17/2025 4:38 PM EDT us Verónica Che MD LAB BLOOD ORDERABLES Final R esult [facility] [address] [place] [address], * ECG-Annotated (03/27/2025) us Provider Onbase MD [...] The vast majority of lymphocytes are small, FL48-crxpnehy B cells that show diffuse expression of [...] Meron Harding (Hematopathology). 5 3:49 PM EDT [facility] Comment The appendix is [...] consensus conference 03/27/25. 5 3:49 PM EDT [facility] Gross Description A. Large [...] one piece each). KR 3:49 PM EDT [facility] Disclaimer NOTE: The immunohistochemical tests and in situ hybridization tests were developed and their performance characteristics were determined by [facility]. They have not been [...] fixed and paraffin embedded. 3:49 PM EDT [facility] Tissue Appendix structure / Unknown 03/23/2025 3:53 PM EDT 03/26/2025 5:19 AM EDT Miguel Angel Arreola MD LAB PATHOLOGY ORDERABLES Final Result [facility] [address] [place] [address], * TH AN ENDOTRACHEAL(NO CHARGE) (03/23/2025 3:10 PM EDT) Narrative Paramjit Palencia CRNA - 03/23/2025 3:10 PM EDT Paramjit Palencia CRNA 03/23/2025 3:11 PM General Information and Staff Patient location during procedure: OR Performed by: Paramjit Palencia [employer] Authorized by: Jude Archuleta MD Intubation Airway [...] * Magnesium (03/23/2025 5:48 AM EDT) Pathologist [facility] Magnesium 1.9 1.9 - 2.6 mg/dL LAB CHEMISTRY METHOD 03/23/2025 7:26 AM EDT [facility] Blood Venous blood specimen / Unknown Venipuncture / Unknown 03/23/2025 5:48 AM EDT 03/23/2025 6:17 AM EDT Selena CHATMAN LAB BLOOD ORDERABLES Final Re sult [facility] [address] [place] [address], [place] [phone] * (ABNORMAL) Basic metabolic panel (03/23/2025 5:48 AM EDT) Sodium 141 133 - 145 mmol/L LAB CHEMISTRY METHOD 03/23/2025 7:26 AM EDT [facility] Potassium 4.2 3.5 - 5.5 mmol/L LAB CHEMISTRY METHOD 03/23/2025 7:26 AM [facility] Chloride 108 96 - 110 mmol/L LAB CHEMISTRY METHOD 03/23/2025 7:26 AM [facility] CO2 30 21 - 32 mmol/L LAB CHEMISTRY METHOD 03/23/2025 7:26 AM [facility] Anion Gap 3 3 - 11 LAB CHEMISTRY METHOD 03/23/2025 7:26 AM [facility] Glucose 103(H) 70 - 100 mg/dL LAB CHEMISTRY METHOD 03/23/2025 7:26 AM [facility] BUN 6 5 - 25 mg/dL LAB CHEMISTRY METHOD 03/23/2025 7:26 AM [facility] Creatinine 0.77 0.70 - 1.30 mg/dL LAB CHEMISTRY METHOD 03/23/2025 7:26 AM [facility] eGFR 95 >=60 mL/min/1. 73m2 LAB CHEMISTRY METHOD 03/23/2025 7:26 AM [facility] Comment:Calculation based on the Chronic Kidney Disease Epidemiology Collaboration (CKD-EPI) equation refit without adjustment for race. BUN/Creatinine Ratio 7.8 LAB CHEMISTRY METHOD 03/23/2025 7:26 AM [facility] Calcium 8.9 8.5 - 10.5 mg/dL LAB CHEMISTRY METHOD 03/23/2025 7:26 AM [facility] Blood Venous blood specimen / Unknown Venipuncture / Unknown 03/23/2025 5:48 AM EDT 03/23/2025 6:17 AM EDT Selena CHATMAN LAB BLOOD ORDERABLES Final Re sult [facility] [address] [place] [address], [place] [phone] * CT Abdomen Pelvis w Contrast (03/22/2025 [...] adjacent edema. No acute fracture. Procedure Note Nisha Pavon MD - 03/22/2025 INDICATION: concern for incarcerated [...] LAB CHEMISTRY METHOD 03/22/2025 4:30 PM EDT [facility] Blood Venous blood specimen / Unknown Venipuncture / Unknown 03/22/2025 3:50 PM EDT 03/22/2025 3:53 PM EDT Jude Pérez MD LAB BLOOD ORDERABLES Final Resul t [facility] [address] [place] [address], [place] [phone] * Blood Culture, Peripheral #2 (03/22/2025 3:50 PM EDT) Only the most recent of2 resultswithin the time period is included. [facility] Culture, Blood No growth at 5 days 03/27/2025 5:01 PM EDT [facility] Blood Venous blood specimen / Unknown Venipuncture / Unknown 03/22/2025 3:50 PM EDT 03/22/2025 3:53 PM EDT us Jude Pérez MD LAB MICROBIOLOGY - GENERAL ORDER SEBAS Final Result [facility] [address] [place] [address], [place] [phone] * Comprehensive metabolic panel (03/22/2025 3:50 PM EDT) [facility] Sodium 140 133 - 145 mmol/L LAB CHEMISTRY METHOD 03/22/2025 4:29 PM [facility] Potassium 4.0 3.5 - 5.5 mmol/L LAB CHEMISTRY METHOD 03/22/2025 4:29 PM [facility] Chloride 107 96 - 110 mmol/L LAB CHEMISTRY METHOD 03/22/2025 4:29 PM [facility] CO2 28 21 - 32 mmol/L LAB CHEMISTRY METHOD 03/22/2025 4:29 PM [facility] Anion Gap 5 3 - 11 LAB CHEMISTRY METHOD 03/22/2025 4:29 PM [facility] Glucose 95 70 - 100 mg/dL LAB CHEMISTRY METHOD 03/22/2025 4:29 PM [facility] BUN 7 5 - 25 mg/dL LAB CHEMISTRY METHOD 03/22/2025 4:29 PM [facility] Creatinine 0.90 0.70 - 1.30 mg/dL LAB CHEMISTRY METHOD 03/22/2025 4:29 PM [facility] eGFR 91 >=60 mL/min/1. 73m2 LAB CHEMISTRY METHOD 03/22/2025 4:29 PM [facility] Comment:Calculation based on the Chronic Kidney Disease Epidemiology Collaboration (CKD-EPI) equation refit without adjustment for race. BUN/Creatinine Ratio 7.8 LAB CHEMISTRY METHOD 03/22/2025 4:29 PM [facility] Calcium 9.4 8.5 - 10.5 mg/dL LAB CHEMISTRY METHOD 03/22/2025 4:29 PM [facility] AST (SGOT) 25 10 - 42 unit/L LAB CHEMISTRY METHOD 03/22/2025 4:29 PM [facility] ALT (SGPT) 23 10 - 60 unit/L LAB CHEMISTRY METHOD 03/22/2025 4:29 PM [facility] Alkaline Phosphatase 88 42 - 121 unit/L LAB CHEMISTRY METHOD 03/22/2025 4:29 PM [facility] Total Protein 7.2 6.0 - 8.0 g/dL LAB CHEMISTRY METHOD 03/22/2025 4:29 PM [facility] Albumin 3.3 3.2 - 5.0 g/dL LAB CHEMISTRY METHOD 03/22/2025 4:29 PM [facility] Total Bilirubin 1.1 0.0 - 1.4 mg/dL LAB CHEMISTRY METHOD 03/22/2025 4:29 PM [facility] Blood Venous blood specimen / Unknown Venipuncture / Unknown 03/22/2025 3:50 PM EDT 03/22/2025 3:53 PM EDT us Jude Pérez MD LAB BLOOD ORDERABLES Final Resul t [facility] [address] [place] [address], [place] [phone] from Last 3 Months Insurance [employer] [id number] [facility] Care Teams Marble Carver Relationship Specialty Start Date End Date Katie Jacinto PA [address] [place] [address] PCP - General Physician Gum Machine Filler 04/17/25
--- OUTSIDE RECORDS SUMMARY | 2025-05-15 18:34 | XMS_ITS | Patient Health Record ---
Author Organization [facility] Address [address] [place] [address] Care Team Providers Care Gis Database Administrator Name Role Phone Svitlana Mckenzie Primary Care Provider Chai Rothman [phone] Allergies No Known Allergies Results Component Value Reference Range Notes Pathology Reviewed date:06/13/2024 11:39:55 PM Interpretation: Performing Lab:[facility], [address] [place] [phone] Notes/Report: Reason For Referral No Information Medications [...] W/U Status Risk Notes Problem Rectal bleeding (46012258) Rectal bleeding (K62.5) Active confirmed Problem Screening for malignant neoplasm of colon (212779012) Encounter for screening for malignant neoplasm of colon (Z12.11) Active confirmed Problem Diverticular disease of colon (717571931) Diverticulosis of large intestine without perforation or abscess without bleeding (K57.30) Active confirmed Problem History of adenomatous polyp of colon (444339526) Hx of adenomatous colonic polyps (Z86.010) Active confirmed Problem Pre-procedure evaluation check (519184967) Pre-procedural examination (Z01.818) Active confirmed Problem Fecal soiling (085808280) Fecal soiling (R15.1) Active confirmed Encounters Encounter Location Date Provider Diagnosis [facility] [address] [place], [place] [phone] 05/26/2024 Chai Owen Colon cancer screeni ng Z12.11 ; Colon polyps K63.5 ; Diverticulosis of large intestine without perforation or abscess without bleeding K57.30 and Other hemorrhoids K64.8 [facility] [address] [place] [address] 06/12/2024 Chai Owen Assessments Encounter Date Diagnosis [...] Insured Coverage Start Date Coverage End Date [facility] [employer] [address] [place] [address] [id number] ANTONIA COHN Self - patient is the insured Medical (General) History Medical History History ICD Code Denies [place],DM,CVA,Lung disease,renal dise ase Colonoscopy in 06/2005 with a 1.0 cm tubular adenoma with high grade dysplasia removed; negative colonoscopy in 07/2009. Surgical History Surgery Date(Month/Year) Cataracts 2022
== END ==
LOC: HO.CARD 14:13
PROVIDERS: PCP General Practice; Visit Provider Physician Assistant
DX: F10.10 Alcohol abuse, uncomplicated (principal); R00.0 Tachycardia, unspecified; R42 Dizziness and giddiness
CPT/HCPCS: 93242; 93306; Q9957

== ENCOUNTER → 2025-05-15 14:16 | Outpatient (BNV) | payer MEDICARE, OTHER, SELFPAY | PROVIDERS: PCP General Practice; Visit Provider Internal Medicine | DX: I42.2 Other hypertrophic cardiomyopathy (principal); I51.89 Other ill-defined heart diseases | CPT/HCPCS: 93306 ==

== ENCOUNTER 2025-06-04 14:23 | Outpatient (AMB) | payer MEDICARE, OTHER, SELFPAY ==
--- NOTE | 2025-06-04 14:31 | A.OFFPC_ITS ---
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 Accompanied by: Self / Same As Patient Allergies No Known Allergies Allergy (Verified 06/04/25 14:33) Medication List - Last Reconciled 06/04/25 by COMPA Alexandra ammonium lactate 12% 1 appl topical BID econazole nitrate 1% appl topical BID folic acid 1 mg PO DAILY indomethacin 50 mg PO BID PRN metoprolol succinate ER 25 mg PO DAILY multivitamin 1 tab PO DAILY trazodone 200 mg (2 x 100 mg) PO BEDTIME Tobacco use date assessed: 01/15/25 Dental Screening Dental Screen Date: 01/15/25 HPI HPI Comments History of Present Illness Details 74-year-old male with history of hyperch olesterolemia, alcohol use disorder, an kylosing spondylitis, gout, insomnia, venous stasis presenting to the office today for management of chronic conditions. Last seen by Dr. Porter 01/2025. He is also following with Dr. Barajas at the OR on [facility]. Gout-initial episode 01/2025. Took Voltaren. Now on indomethacin as needed. No further episodes Hypercholesterolemia-last LDL 90. Not on statin Alcohol use disorder-reports drinking 3-4 beers per day as well as a glass of wine and has been doing this for some time. He does not have any intention of cutting back or quitting. S/p appendectomy and umbilical hernia repair [facility] March 23. Apparently there was an abnormality of the appendix and is following with the [facility] for evaluation Insomnia-taking trazodone 200 mg nightly Neuropathy- OR gave him 4% lidocaine Concerns: Lightheadedness-will last for up to several hours. Denies any room spinning dizziness or falls. Does report unsteady gait. Sometimes happens when he wakes up in the morning or later in the day. No other associated symptoms. He is noted to be tachycardic at 01:11 in the office today as well as hypertensive. Question whether this is related to alcohol use. Has been referred to Neurology with appointment 09/2025 Intention tremor Neuropathy *Question whether symptoms are related to alcohol use Diarrhea- Dr. Owen, last seen 2 years ago for colonoscopy. Ongoing since Jun 2024. Happens at least 2-3 times weekly and will continue for days at times. No n/v. Bloating, cramping which resolves after BM. Has urgency. No blood. No f calista or chills. No hx colon cancer. Unknown if FH IBD. Has eliminated lactose Health maintenance: Last colonoscopy 05/2024 with 3 tubular adenoma noted, 2 year follow-up advised. Dr. Owen ROS: See HPI EXAM: Constitutional - Awake and Alert, No apparent distress Eyes - PERRL Cardiovascular - S1S2, RR, tachycardic, No edema Respiratory - Normal lung expansion, Normal respiratory effort, No respiratory distress, CTA bilaterally Extremities - no calf tenderness bilaterally, no swelling Skin - Warm/Dry Neurological - Alert & oriented x3. Abnormal tandem gait- stepping off line, unsteady, wide base support. Horizontal nystagmus, otherwise CN II-XII intact. Intention tremor noted with outstretched hands Psychological - Appropriate affect [facility] Medical History (Updated 06/04/25 @ 17:08 by COMPA Alexandra) Liver disease IBS (irritable bowel syndrome) Tubular adenoma Cerebellar ataxia Ankylosing spondylitis Alcohol abuse Gait disorder Hypercholesteremia No pertinent past medical history Surgical History (Updated 04/16/25 @ 14:35 by COMPA Alexandra) S/P appendectomy Status post umbilical hernia repair, follow-up exam Hx of cataract extraction H/O colonoscopy (~05/26/24) Family History Mother No problems noted. Father No problems noted. Social History Housing: Apartment Patient Tobacco Use Status: Never used Tobacco e-Cigarette/Vaping Use: Never Used service: Yes Current occupational status: retired Cognitive needs: No Hearing needs: No Vision needs: No Questionnaire Thrive Questionnaire Date Thrive assessed: 01/15/25 ALEJANDRINA-7 AMB Questionnaire ALEJANDRINA-7 Date ALEJANDRINA - 7 assessed: 01/15/25 Source: Developed by Drs. Chai Burnham, Zeinab Aponte, Bashir Montejo and colleagues, with an educational shade from [employer]. Physical exam (Primary Care) Vital Signs: Last Vital Signs Temp 97.7 F 06/04/25 14:33 Pulse 116 H 06/04/25 14:33 Resp 22 H 06/04/25 14:33 BP 136/84 06/04/25 14:57 Pulse Ox 96 06/04/25 14:33 Oxygen Delivery Method Room Air 06/04/25 14:33 BMI result Body Mass Index 30.3 Tobacco/Smoking Status: Tobacco use Status Tobacco use date assessed 01/15/25 06/04/25 14:32 Patient Tobacco Use Status Never used Tobacco 06/04/25 14:32 e-Cigarette/Vaping Use Never Used 06/04/25 14:32 Thrive Assessment: Date of Thrive Assessment Date Thrive assessed 01/15/25 06/04/25 14:32 Coding Level of Care Code Est Pt Level 4 (10357) Complex EM visit Add On G2211 Diagnoses Cerebellar ataxia G11.9 Lightheadedness R42 Tachycardia R00.0 Hypercholesteremia E78.00 Alcohol abuse F10.10 Hyperbilirubinemia E80.6 IBS (irritable bowel syndrome) K58.9 Liver disease K76.9 Assessment & Plan Assessment & Plan (1) Cerebellar ataxia: Code(s): G11.9 - Hereditary ataxia, unspecified Category: Medical Plan: Suspect this is related to alcohol use. However, will assess on brain MRI to rule out other possible causes of ataxia (2) Lightheadedness: Code(s): R42 - Dizziness and giddiness Category: Medical Plan: Again suspect this is likely related to alcohol use. However will check echocardiogram and Holter monitor. EKG performed in the office today is reassuring, no dysrhythmia (3) Tachycardia: Code(s): R00.0 - Tachycardia, unspecified Category: Medical Plan: As above (4) Hypercholesteremia: Code(s): E78.00 - Pure hypercholesterolemia, unspecified Category: Medical Plan: Controlled. (5) Alcohol abuse: Code(s): F10.10 - Alcohol abuse, uncomplicated Category: Social Hx Plan: Strongly advised cessation. Discussed risks of ongoing alcohol use (6) Hyperbilirubinemia: Code(s): E80.6 - Other disorders of bilirubin metabolism Category: Medical Plan: Liver panel ordered. Has ultrasound of the liver scheduled by the OR and upcoming months (7) IBS (irritable bowel syndrome): Code(s): K58.9 - Irritable bowel syndrome, unspecified Category: Medical Plan: Recommend elimination with FODMAP diet. Advised to reach out to gastroenterology (8) Liver disease: Code(s): K76.9 - Liver disease, unspecified Category: Medical Plan: US liver elastography ordered. Counseled on alcohol use. Referred to Gastroenterology for further evaluation and management. Plan Follow-up in the office in 6 months Orders: Orders Lipid Panel Today D75.89 - Other specified diseases of blood and blood-forming organs, E78.00 - Pure hypercholesterolemia, unspecified, E80.6 - Other disorders of bilirubin metabolism, F10.10 - Alcohol abuse, uncomplicated Prostate Specific Antigen Today D75.89 - Other specified diseases of blood and blood-forming organs, E78.00 - Pure hypercholesterolemia, unspecified, E80.6 - Other disorders of bilirubin metabolism, F10.10 - Alcohol abuse, uncomplicated Vitamin B12 and Folate Today D75.89 - Other specified diseases of blood and blood-forming organs, E78.00 - Pure hypercholesterolemia, unspecified, E80.6 - Other disorders of bilirubin metabolism, F10.10 - Alcohol abuse, uncomplicated US abdomen martin w elastography Today E80.6 - Other disorders of bilirubin metabolism, F10.10 - Alcohol abuse, uncomplicated Basic Metabolic Panel Today D75.89 - Other specified diseases of blood and blood-forming organs, E78.00 - Pure hypercholesterolemia, unspecified, E80.6 - Other disorders of bilirubin metabolism, F10.10 - Alcohol abuse, uncomplicated Complete Blood Count Auto Diff Today D75.89 - Other specified diseases of blood and blood-forming organs, E78.00 - Pure hypercholesterolemia, unspecified, E80.6 - Other disorders of bilirubin metabolism, F10.10 - Alcohol abuse, uncomplicated Liver Panel Today D75.89 - Other specified diseases of blood and blood-forming organs, E78.00 - Pure hypercholesterolemia, unspecified, E80.6 - Other disorders of bilirubin metabolism, F10.10 - Alcohol abuse, uncomplicated Referrals Gastroenterology Referral E80.6 - Other disorders of bilirubin metabolism, F 10.10 - Alcohol abuse, uncomplicated, K58.9 - Irritable bowel syndrome, unspecified Medications: Changed From indomethacin administer with food or milk 50 mg PO BID PRN To indomethacin administer with food or milk 50 mg PO BID 10 caps 0RF
[2025-06-04 14:33] VITALS: BP 152/52; PULSE 116; RESP 22; TEMP 36.5; O2SAT 96; BMI 30.3
[2025-06-04 14:57] VITALS: BP 136/84
== END 2025-06-04 15:05 | disposition home or self-care (01) ==
PROVIDERS: PCP Physician Assistant; Visit Provider Physician Assistant
DX: G11.9 Hereditary ataxia, unspecified (principal); R42 Dizziness and giddiness; R00.0 Tachycardia, unspecified; E78.00 Pure hypercholesterolemia, unspecified; F10.10 Alcohol abuse, uncomplicated; E80.6 Other disorders of bilirubin metabolism; K58.9 Irritable bowel syndrome, unspecified; K76.9 Liver disease, unspecified

== ENCOUNTER 2025-06-04 14:23 | Outpatient (REF) | payer MEDICARE, OTHER, SELFPAY ==
[2025-06-04 15:37] LABS: MANUAL DIFF FLAG NO
[2025-06-04 16:24] LABS: Hematocrit 47.9 % (42.0-52.0); Hemoglobin 16.5 g/dl (14.0-18.0); Imm Gran Abs Auto 0.05 X10*3/uL (0.00-0.03); Imm Gran Pct Auto 0.8 % (0.0-0.4); Lymphocytes Absolute Auto 1.2 X10*3/uL (1.2-4.9); Mean Corpuscular HGB Conc 34.4 g/dl (31.0-36.0); Mean Corpuscular Hemoglobin 34.2 pg (27.0-33.0); Mean Corpuscular Volume 99.4 fL (80.0-98.0); NRBC Abs Auto 0.000 X10*3/uL (0.0-0.012); NRBC Pct Auto 0.0 /100WBC (0.0-0.2); Platelet Count 166 X10*3/uL (160-400); Red Blood Count 4.82 X10*6/uL (4.60-5.80); White Blood Count 6.3 X10*3/uL (4.8-10.8)
[2025-06-04 17:08] LABS: Alanine Aminotransferase 18 U/L (0-40); Albumin Level 3.9 g/dL (3.5-5.0); Alkaline Phosphatase 88 U/L (39-117); Anion Gap 10 (12-20); Aspartate Amino Transferase 33 U/L (5-37); Blood Urea Nitrogen 8 mg/dL (9-16); Calcium 9.8 mg/dL (8.4-10.2); Carbon Dioxide 28 mmol/L (22-29); Chloride 105 mmol/L (96-108); Cholesterol 180 mg/dL (<200); Estimated Glomerular Filt Rate > 60; HDL Cholesterol 72 mg/dL (>40); Potassium 5.1 mmol/L (3.3-5.1); Sodium 138 mmol/L (135-145); Total Protein 7.3 g/dL (6.5-8.0); Triglycerides 143 mg/dL (<150)
[2025-06-04 17:24] LABS: Folate 9.5 ng/mL (> or = 4.0); Prostate Specific Antigen 2.51 ng/mL (<0.05-4.0); Vitamin B12 279 pg/mL (200-900)
== END 2025-06-04 14:24 | disposition home or self-care (01) ==
LOC: HO.LAB 14:23
PROVIDERS: PCP Internal Medicine; Visit Provider Physician Assistant
DX: R42 Dizziness and giddiness (principal); D75.89 Other specified diseases of blood and blood-forming organs; E78.00 Pure hypercholesterolemia, unspecified; E80.6 Other disorders of bilirubin metabolism; F10.10 Alcohol abuse, uncomplicated; R00.0 Tachycardia, unspecified; G11.9 Hereditary ataxia, unspecified; K58.9 Irritable bowel syndrome, unspecified; K76.9 Liver disease, unspecified; Z12.5 Encounter for screening for malignant neoplasm of prostate
CPT/HCPCS: 36415; 80048; 80061; 80076; 82607; 82746; 84153; 85025; 99212